=== PATIENT | male | born 1950 | race Caucasian/White ===

== ENCOUNTER 2024-01-17 10:21 | Observation (INO) ==
--- NOTE | 2023-12-10 22:53 | PAT Medication Instructions ---
Medication Instructions Date of Service December 10, 2023 Home Medications acetaminophen 500 mg tablet 1,000 mg PO BID PRN Pain amlodipine 10 mg tablet 10 mg PO HS atorvastatin 40 mg tablet 40 mg PO QAM budesonide 90 mcg/actuation breath activated powder inhaler (Pulmicort Flexhaler) 1 inh inhalation BID calcium carbonate 600 mg-vitamin D3 5 mcg (200 unit) tablet 1 tab PO BID epinephrine 0.3 mg/0.3 mL injection, auto-injector (EpiPen) 0.3 mg IM Q4H PRN Bee Sting hydrochlorothiazide 12.5 mg tablet 12.5 mg PO QAM losartan 100 mg tablet 100 mg PO QAM metoprolol succinate 25 mg tablet,extended release 24 hr 25 mg PO HS omeprazole 20 mg tablet,delayed release 20 mg PO QAM prednisone 5 mg tablet 5 mg PO QAM psyllium husk 3.4 gram/5.4 gram oral powder (Metamucil) 1 tbsp PO BID sildenafil 25 mg tablet (Viagra) 25 mg PO DAILY PRN Sexual Activity tamsulosin 0.4 mg capsule 0.4 mg PO HS vitamin B12 500 mcg-folic acid 400 mcg tablet 1 tab PO QAM Continue as directed epinephrine 0.3 mg/0.3 mL injection, auto-injector (EpiPen) 0.3 mg IM Q4H PRN Bee Sting (if needed) DO NOT take the morning of surgery calcium carbonate 600 mg-vitamin D3 5 mcg (200 unit) tablet 1 tab PO BID hydrochlorothiazide 12.5 mg tablet 12.5 mg PO QAM losartan 100 mg tablet 100 mg PO QAM psyllium husk 3.4 gram/5.4 gram oral powder (Metamucil) 1 tbsp PO BID sildenafil 25 mg tablet (Viagra) 25 mg PO DAILY PRN Sexual Activity vitamin B12 500 mcg-folic acid 400 mcg tablet 1 tab PO QAM Take morning of surgery With a small sip of water, OTHERWISE NOTHING TO EAT OR DRINK AFTER MIDNIGHT: acetaminophen 500 mg tablet 1,000 mg PO BID PRN Pain (if needed) atorvastatin 40 mg tablet 40 mg PO QAM budesonide 90 mcg/actuation breath activated powder inhaler (Pulmicort Flexhaler) 1 inh inhalation BID omeprazole 20 mg tablet,delayed release 20 mg PO QAM prednisone 5 mg tablet 5 mg PO QAM Take evening before surgery acetaminophen 500 mg tablet 1,000 mg PO BID PRN Pain (if needed) amlodipine 10 mg tablet 10 mg PO HS budesonide 90 mcg/actuation breath activated powder inhaler (Pulmicort Flexhaler) 1 inh inhalation BID calcium carbonate 600 mg-vitamin D3 5 mcg (200 unit) tablet 1 tab PO BID metoprolol succinate 25 mg tablet,extended release 24 hr 25 mg PO HS psyllium husk 3.4 gram/5.4 gram oral powder (Metamucil) 1 tbsp PO BID tamsulosin 0.4 mg capsule 0.4 mg PO HS Other Notes If you have any questions please call us at [phone] or [phone] or [phone] or [phone]
--- NOTE | 2023-12-20 09:19 | Anesthesiology Consultation ---
Date of Service December 20, 2023 Assessment & Plan (1) Encounter for pre-operative examination: - Infectious disease screening: Per assessment on 12/20/23: No known recent infectious disease contacts or current infectious disease symptoms. - Outpatient joint assessment: Pt currently scheduled for inpatient pathway. If surgeon requests review for outpatient joint pathway, patient is an acceptable candidate for outpatient joint program from anesthesia standpoint pending surgeon's office assessment that patient is motivated, has good support and completes [facility] preop requirements. 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 No recent flares/issues. - Patient acceptable risk for surgery pending surgeon-ordered PCP preop evaluation (RAVEN Sanders, appt 01/05). Chart Review Chart Review: Patient seen in Pre Admission Testing Teaching & Discussion Pre-Anesthesia Teaching/Discussion Notes: Instructed NPO after midnight before surgery,except medications with 15 cc of water. Medication instructions provided according to the PAT guidelines. History Surgery Operation Date: 01/17/24 10:45 Proposed Procedures p Right Shoulder Reversed Total Shoulder Arthroplasty, Biceps Tenodesis - Casper Pickard MD Height/Weight Height: 5 ft 1.5 in Weight: 67 kg Allergies Allergy/AdvReac Type Severity Reaction Status Date / Time bee venom protein (honey bee) Allergy Severe Anaphylaxis Verified 12/06/23 14:43 Penicillins Allergy Mild Rash Verified 12/19/23 12:21 Medications Home Medications Medication Instructions Recorded Confirmed Last Taken acetaminophen 500 mg tablet 1,000 mg PO BID PRN Pain 12/06/23 12/06/23 Unknown amlodipine 10 mg tablet 10 mg PO HS 12/06/23 12/06/23 Unknown atorvastatin 40 mg tablet 40 mg PO QAM 12/06/23 12/06/23 Unknown budesonide 90 mcg/actuation breath 1 inh inhalation BID 12/06/23 12/06/23 Unknown activated powder inhaler (Pulmicort Flexhaler) calcium carbonate 600 mg-vitamin 1 tab PO BID 12/06/23 12/06/23 Unknown D3 5 mcg (200 unit) tablet epinephrine 0.3 mg/0.3 mL 0.3 mg IM Q4H PRN Bee Sting 12/06/23 12/06/23 Unknown injection, auto-injector (EpiPen) hydrochlorothiazide 12.5 mg tablet 12.5 mg PO QAM 12/06/23 12/06/23 Unknown losartan 100 mg tablet 100 mg PO QAM 12/06/23 12/06/23 Unknown metoprolol succinate 25 mg 25 mg PO HS 12/06/23 12/06/23 Unknown tablet,extended release 24 hr omeprazole 20 mg tablet,delayed 20 mg PO QAM 12/06/23 12/06/23 Unknown release prednisone 5 mg tablet 5 mg PO QAM 12/06/23 12/06/23 Unknown psyllium husk 3.4 gram/5.4 gram 1 tbsp PO BID 12/06/23 12/06/23 Unknown oral powder (Metamucil) sildenafil 25 mg tablet (Viagra) 25 mg PO DAILY PRN Sexual Activity 12/06/23 12/06/23 Unknown tamsulosin 0.4 mg capsule 0.4 mg PO HS 12/06/23 12/06/23 Unknown vitamin B12 500 mcg-folic acid 400 1 tab PO QAM 12/06/23 12/06/23 Unknown mcg tablet Past Medical History Medical History (Updated 12/20/23 @ 09:46 by Leticia Hardin) Acid reflux Arthritis 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 No recent flares/issues. 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 No recent flares/issues. Osteoporosis Per records Reactive airway disease Per records Exercise / Class Metabolic Activity II 4-5 Yardwork/Stairs/Walk up hill (one FS: No CP, no SOB) Past Surgical History Surgical History Hx of blepharoplasty 11/27/23 bilateral Hx of colonoscopy Hx of esophagogastroduodenoscopy Hx of hernia repair "left lower abdomen" Hx of total knee replacement Right TKA (03/03/16): LMA#5 at [facility] (done under [place] due to hx of chronic guillian barre syndrome per anesthesia records) Past Anesthesia History No Hx of Anesthesia Complications and No Family Hx of Anesthesia Complications History of PONV No Hx of PONV and No Hx of Motion Sickness Social History Smoking Status: Never smoker Do You Dip or Chew Tobacco: No Hx Alcohol Use: No Hx Substance Use: No substance use type: does not use Review of Systems Patient denies chest pain, shortness of breath, dyspnea on exertion, fever, chills, cough, wheezing, palpitations. Physical Exam Vital Signs BP 145/75 P 71 TEMP 97.9 SP02 95%RA RESP 18 Physical Full cervical extension range of motion. Full TMJ range of motion. TMD > 3.5 finger breaths Mallampati Score III Dentition: intact, + implants/crowns (sides/molars) Lungs: clear throughout to auscultation Cardiac: regular rate and rhythm, no murmurs noted Spine: normal Carotid arteries: negative bruit Extremities: no LE edema Lab Results Anesthesia Preop Results Results Anesthesia Widget: WBC 5.84 K/ul (4.8-10.8) 12/20/23 Hgb 13.3 g/dl (14.0-18.0) L 12/20/23 Hct 39.2 % (42.0-52.0) L 12/20/23 Plt 222 K/uL (130-400) 12/20/23 Na 141 mmol/L (136-145) 12/20/23 K 3.5 mmol/L (3.5-5.1) 12/20/23 Cl 105 mmol/L (98-107) 12/20/23 CO2 28 mmol/L (21-32) 12/20/23 BUN 16 mg/dl (6-23) 12/20/23 Creat 0.97 mg/dl (0.6-1.4) 12/20/23 Glucose Level 101 mg/dl (70-99(Fasting)) H 12/20/23 PT 10.6 Seconds (9.0-12.0) 12/20/23 PTT 26 Seconds (21-31) 12/20/23 INR 1.0 (0.9-1.1) 12/20/23 Urine Color Yellow 12/20/23 Urine Appearance Clear (Clear) 12/20/23 Urine pH 7.5 (4.5-7.5) 12/20/23 Urine Specific [place] 1.015 (1.000-1.030) 12/20/23 Urine Protein Negative (Negative) 12/20/23 Urine Glucose (UA) Negative (Negative) 12/20/23 Urine Ketones Negative (Negative) 12/20/23 Urine Blood Negative (Negative) 12/20/23 Urine Nitrite Negative (Negative) 12/20/23 Urine Bilirubin Negative (Negative) 12/20/23 Urine Urobilinogen Negative (Negative) 12/20/23 Urine Leukocyte Esterase Negative (Negative) 12/20/23 Blood Type O Negative 12/20/23 Antibody Screen NEGATIVE 12/20/23 Testing Electrocardiogram Date: 12/20/23 NSR at 65bpm. RBBB. Chest X-Ray Date: 12/20/23 FINDINGS: PA and lateral chest radiographs are obtained. No prior studies are available for comparison at the time of dictation. The cardiomediastinal silhouette is unremarkable noting atherosclerotic calcification of the thoracic aorta. There is mild bibasilar scarring/atelectasis. The lungs and pleural spaces are otherwise clear. There is no pneumothorax. The skeletal structures are osteopenic. The bony thorax appears intact. Arthritic change is seen in the right shoulder and the thoracic spine. IMPRESSION: No active disease in the chest. Stress Test Date: 06/20/19 Type: exercise Exercise echo normal without evidence of inducible ischemia. 7.7 METS. Rest Echo: EF 70%. Mildly increased cLV wall thickness. Grade I DD. No significant valvular disease.
--- NOTE | 2024-01-15 19:02 | History & Physical Report ---
Date of Service January 15, 2024 Assessment & Plan (1) Rotator cuff tear arthropathy of right shoulder: Plan: Severe right shoulder end-stage osteoarthritis with bone loss and rotator cuff tear and biceps tendinopathy. Plan is reverse total shoulder arthroplasty bi ceps tenodesis. (2) Osteoarthritis of right glenohumeral joint: (3) Biceps tendinopathy of right upper extremity: History of Present Illness Chief Complaint: Chronic right shoulder pain Primary Care Provider: Harsh Schmidt MD 73-year-old male with chronic right shoulder pain and progressive severe arthritis of the glenohumeral joint with rotator cuff tear. Patient denies headaches, sweats, fevers, chills, double vision, blurred vision, cough, sore throat, dysphagia, chest pain, n/v/d/c, numbness, fatigue, urinary symptoms, mood disorders. ROS positive for shortness of breath related to COPD and physical activity some extremity weakness ,arthritis including spine, acid reflux heartburn. Allergies Allergy/AdvReac Type Severity Reaction Status Date / Time bee venom protein (honey bee) Allergy Severe Anaphylaxis Verified 12/06/23 14:43 Penicillins Allergy Mild Rash Verified 12/19/23 12:21 Home Medications Medication Instructions Recorded Confirmed Type acetaminophen 500 mg tablet 1,000 mg PO BID PRN Pain 12/06/23 12/06/23 History amlodipine 10 mg tablet 10 mg PO HS 12/06/23 12/06/23 History atorvastatin 40 mg tablet 40 mg PO QAM 12/06/23 12/06/23 History budesonide 90 mcg/actuation breath 1 inh inhalation BID 12/06/23 12/06/23 History activated powder inhaler (Pulmicort Flexhaler) calcium carbonate 600 mg-vitamin 1 tab PO BID 12/06/23 12/06/23 History D3 5 mcg (200 unit) tablet epinephrine 0.3 mg/0.3 mL 0.3 mg IM Q4H PRN Bee Sting 12/06/23 12/06/23 History injection, auto-injector (EpiPen) hydrochlorothiazide 12.5 mg tablet 12.5 mg PO QAM 12/06/23 12/06/23 History losartan 100 mg tablet 100 mg PO QAM 12/06/23 12/06/23 History metoprolol succinate 25 mg 25 mg PO HS 12/06/23 12/06/23 History tablet,extended release 24 hr omeprazole 20 mg tablet,delayed 20 mg PO QAM 12/06/23 12/06/23 History release prednisone 5 mg tablet 5 mg PO QAM 12/06/23 12/06/23 History psyllium husk 3.4 gram/5.4 gram 1 tbsp PO BID 12/06/23 12/06/23 History oral powder (Metamucil) sildenafil 25 mg tablet (Viagra) 25 mg PO DAILY PRN Sexual Activity 12/06/23 12/06/23 History tamsulosin 0.4 mg capsule 0.4 mg PO HS 12/06/23 12/06/23 History vitamin B12 500 mcg-folic acid 400 1 tab PO QAM 12/06/23 12/06/23 History mcg tablet Past Med/Surg History Problem List (Updated 01/15/24 @ 19:00 by Casper Pickard MD) 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 No recent flares/issues. 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 No recent flares/issues. Surgical History Hx of hernia repair "left lower abdomen" Hx of esophagogastroduodenoscopy Hx of total knee replacement Right TKA (03/03/16): LMA#5 at [facility] (done [place] due to hx of chronic guillian barre syndrome per anesthesia records) Hx of blepharoplasty 11/27/23 bilateral Hx of colonoscopy Social History Smoking Status: Never smoker Second Hand Exposure: No; Do You Dip or Chew Tobacco: No; Tobacco Cessation Education Requested by Patient: No Hx Alcohol Use: No Hx Substance Use: No Preferred Language: Ghanaian Communication Ability: Effective Edge Brusher Required: No Beliefs That Will Affect Care: None Current Living Situation: Spouse Other Information That Helps Us Care for You: No Feels Safe at Home: Yes Safety Concerns: Feels Safe At This Time Assistive Devices: Glasses and Other Assistive Devices Comment: Dental implant Review of Systems All systems reviewed & are unremarkable except as noted in HPI & below Physical Exam Constitutional: WD/WN, vitals as above Respiratory: normal respiratory effort; no respiratory distress Cardiovascular: Rate/Rhythm: regular rate and regular rhythm Musculoskeletal: Right shoulder with forward flexion 140 degrees with external rotation 45 degrees and painful range of motion with glenohumeral crepitation positive Charles and Neer impingement signs positive speeds test anterior shoulder tenderness. 4+/ 5 external and internal rotation strength with 5-/5 abduction strength. Distal circulation sensorimotor exam intact. Skin: no rashes, warm and dry Neurologic: normal touch/pain/proprioception Psychiatric: A+Ox3, euthymic affect Results & Data Diagnostic Findings MRI and CT scans obtained preop. CT scan for blueprint templating. MRI demonstrates rotator cuff tear with bone loss humeral and glenoid sides with B2 glenoid and flattening of the humeral head with grade 4 osteoarthritis glenohumeral joint. Also biceps tendinopathy.
[~2024-01-17 10:21] MED LIST: BUPIVACAINE 0.5 % 5 MG/1 ML PF 10ML VIAL ONE
[2024-01-17] MEDS ORDERED: fentaNYL citrate PF 100 MCG/2 ML VIAL ONE (11:03)
[2024-01-17] MEDS ORDERED: MIDAZOLAM HCL 1 MG/ML 2ML VIAL ONE (11:03)
[2024-01-17] MEDS: ACETAMINOPHEN 500 MG TAB PO SCH ×2 (11:27→22:31)
[2024-01-17] MEDS: CeleBREX 200 MG CAP PO SCH (11:27)
[2024-01-17] MEDS: dexAMETHasone**PF** 10 MG/ML VIAL IV SCH (11:27)
[2024-01-17] MEDS: LR 15ML/HR IV SCH (11:27)
[2024-01-17] MEDS: GABAPENTIN 300 MG CAP PO SCH (11:28)
[2024-01-17] MEDS: LR 60ML/HR IV SCH (11:28)
[2024-01-17] MEDS: METOCLOPRAMIDE HCL 10 MG TABLET PO SCH (11:28)
[2024-01-17] MEDS: FAMOTIDINE 20 MG TAB PO SCH (11:28)
[2024-01-17] MEDS: VANCOMYCIN HCL 1,000 MG/270 ML BAG IV SCH (11:47)
[2024-01-17] MEDS ORDERED: ONDANSETRON INJ 2 MG/ML 2 ML VIAL IV PRN ×2 (12:20→19:12)
[2024-01-17] MEDS ORDERED: ATROPINE SULFATE 0.1 MG/ML 10ML SYR IV PRN (12:20)
[2024-01-17] MEDS ORDERED: ePHEDrine sulfate 50 MG/ML AMP IV PRN (12:20)
[2024-01-17] MEDS ORDERED: fentaNYL citrate PF 100 MCG/2 ML VIAL IV PRN (12:20)
[2024-01-17] MEDS: TRANEXAMIC ACID / 0.7% NACL 1,000 MG/100 ML BAG IV ONE (12:36)
--- NOTE | 2024-01-17 13:16 | History & Physical Bridge Note ---
Date of Service January 17, 2024 History & Physical Bridge Note I have examined the patient, reviewed the History & Physical and in the interval since the performance of the History & Physical I have noted the following changes of clinical significance: no changes noted
[2024-01-17] MEDS ORDERED: PROPOFOL IV EMULSION 10 MG/ML 20 ML VIAL IV ONE (13:56)
[2024-01-17] MEDS ORDERED: PHENYLEPHRINE HCL 10 MG/ML VIAL ONE (13:56)
[2024-01-17] MEDS ORDERED: GLYCOPYRROLATE 0.2 MG/ML VIAL ONE ×2 (13:56→16:12)
[2024-01-17] MEDS ORDERED: ROCURONIUM BROMIDE 10 MG/ML 5 ML VIAL IV ONE (13:56)
[2024-01-17] MEDS ORDERED: ePHEDrine sulfate 50 MG/5 ML SYR ONE (13:56)
[2024-01-17] MEDS ORDERED: LIDOCAINE 2% 2 ML VIAL/AMP(20MG/ML) INFIL ONE (13:56)
[2024-01-17] MEDS ORDERED: ONDANSETRON INJ 2 MG/ML 2 ML VIAL ONE (13:56)
[2024-01-17] MEDS ORDERED: diphenhydrAMINE 50 MG/ML VIAL ONE (14:25)
[2024-01-17] MEDS ORDERED: NEOSTIGMINE METHYLSULFATE 1 MG/ML 10ML VIAL ONE (16:12)
[2024-01-17] MEDS: TRANEXAMIC ACID 1,000 MG **IV Intra-op IV SCH (16:17)
--- NOTE | 2024-01-17 16:53 | Operative Report ---
Post Operative Report Pre & Post Diagnosis Operation Date: 01/17/24 13:00 Pre-Op Diagnosis: Severe glenohumeral osteoarthritis Right Shoulder with bone loss, biceps tendinopathy, biceps tenosynovitis, rotator cuff tendinopathy Post-Op Diagnosis: Severe glenohumeral osteoarthritis Right Shoulder with bone loss, synovial calcifications, rotator cuff calcifications, rotator cuff tendinopathy, biceps tendinopathy with biceps tenosynovitis and multiple loose bodies biceps tendon sheath. I identified the patient and participated in the time-out.: Yes Procedure Operation Date: 01/17/24 13:00 Actual Procedures p Right Reversed Total Shoulder Arthroplasty with augmented full wedge glenoid baseplate, Biceps Tenodesis(Right), biceps tendon synovectomy removal multiple cartilaginous loose bodies.- Casper Pickard MD Surgeon Casper Pickard MD Critical Care Nurse Specialist Lenny BREWER Estimated Blood Loss 75 Findings Consistent with Post-Op Diagnosis Specimens Humeral head Drains 2 Hemovac Anesthesia Type General Regional Complications none Disposition Disposition: Recovery Room Indications 73-year-old male with chronic osteoarthritis right shoulder with progressive osteoarthritis including bone loss. Patient has rotator cuff tendinopathy and superior and posterior glenoid bone loss and flattening of the humeral head. Patient has biceps tenosynovitis with marked inflammatory response around the biceps. Patient has large subacromial effusion. Description of Procedure The patient was taken to the operating room and anesthetized under regional block and general anesthetic. The patient was positioned on the operating table in a 30 beachchair position with a towel roll under the medial border of the right scapula. The arm was draped free to be able to manipulate the shoulder as needed. The right upper extremity was prepped and draped in usual sterile fashion. Exam demonstrated external rotation with the arm to side only 10 degrees but with his arm abducted 90 degrees his external rotation was 80 degrees. There was marked cogwheel [id number] crepitation of the shoulder. Forward flexion was 165 degrees. An anterior deltopectoral approach was performed. A longitudinal incision was made in the deltopectoral interval. The skin was incised sharply. Subcutaneous flaps were elevated off the fascia. The cephalic vein was dissected out and retracted lateral with the deltoid. The clavipectoral fascia was divided at the lateral margin of the conjoined tendon and extended up to the CA ligament. The following findings were noted: There is a massive subacromial bursa effusion with scarred subacromial bursitis. This was resected revealing that he had a thin rotator cuff with tendinopathy and fraying of the bursal surface of the rotator cuff with calcium deposits. There was some partial tearing of the rotator cuff and intact subscapularis tendon. There was a large inflammatory response around the biceps tendon with the marked tenosynovitis that had multiple loose bodies with joint debris within the tendon sheath. The upper centimeter of the pectoralis was released for inferior exposure. Tenosynovectomy around the biceps was performed and all the loose debris was excised. The biceps tendon was tenodesed to the pectoralis tendon with #2 FiberWire. The proximal biceps was resected. The subscapularis tendon was taken down off the lesser tuberosity using a subperiosteal dissection. A #1 Vicryl traction suture was placed into the free end of the subscapularis tendon and capsule. The subscapular muscle fibers were split longitudinally at the level of the circumflex vessels. The circumflex vessels were identified and tied off with silk ties and divided laterally. A Kitner elevator was used to free up the inferior fibers of the subscapularis off of the capsule. The axillary nerve was identified with a tug test and protected with a blunt Zayda retractor between the nerve and the capsule. The subscapularis tendon was then taken down off of the lesser tuberosity subperiosteally and subperiosteal dissection was performed along the neck of the humerus as the arm is gradually actually rotated exposing the humeral head. There were moderate-sized inferior osteophytes and the humeral head had 100% eburnation with very hard bone with a flattened humeral head. Retractors were readjusted and the inferior osteophytes were all resected using an artist chisel. A Alvarez elevator was used to assist in releasing the capsule of the neck of the humerus. The capsule was divided with Huntley scissors down to the glenoid released off the anterior glenoid and the rotator interval was released to meet the capsular release and a 360 release of the subscapularis was accomplished. A Fukuda retractor was placed into the joint retracting the humeral head posterior. Glenoid findings demonstrated calcification of the anterior and inferior labrum and some osteophytes around the anterior and inferior glenoid. There was circumferential degenerative labrum tearing and the glenoid itself had 100% eburnation no articular cartilage a rounded appearance to the inferior 25% of the glenoid and bone loss superiorly and posteriorly with a B2 glenoid variant. There was a markedly widened biceps tendon intra-articularly and the degenerative tearing the labrum.. The labrum and biceps tendon was resected. The calcifications in the labrum were resected and the osteophytes were removed. An anterior-inferior and posterior inferior capsular release were performed with electrocautery and a Alvarez elevator on bone with the axillary nerve protected inferiorly by the retractor. Attention was then taken to the humeral preparation. The cutting guide was placed into the humeral head. It was positioned at 20 of retroversion. Oscillating saw was used to resect the humeral head giving the cut above the level of the posterior rotator cuff insertion site. The humerus was then prepared for the stem. I used the ascend flex stem from [employer]. The sizing broaches were used followed by trial broaches up to a size 4B long which had the appropriate fit and fill. The appropriate sized cut protector was placed. The humerus was then retracted posterior to the glenoid. The PSI guide was placed onto the glenoid. This was generated with blueprint preoperative templating. The central guidepin was placed. Assessment of the bone loss revealed that a full wedge would be the best baseplate type and this maximum apex of the wedge would be placed between posterior and superior in location. The central reamer was used followed by the 15 degree angled reamer followed by the trial baseplate which was noted to be satisfactory and the location of the wedge marked and then the boss reamer was used. The The depth gauge was used to measure for the central screw. Bone was very sclerotic so we did use a tap. Central screw was measured at 30 mm. The [employer] perform augmented full wedge 15 degree glenoid component 29 mm diameter with a 6.5 x 30 mm centered screw was then screwed in position placing the augment in the appropriate position. The compression screw was first placed on the wedge side of the implant with excellent fixation. This was a 5 x 38 mm locking screw. Then subsequent screws were placed inferior anterior and posterior. All had excellent fixation and very hard bone. After irrigation the 39 mm standard glenoid sphere was impacted onto the baseplate and the security screw was tightened. Attention was taken back to the humerus. The cut protector was removed and the +0 high offset humeral tray trial was assembled to the trial stem rotated appropriately to get bony coverage and then screwed in position. A trial reduction was performed. A +6 mm x 39 mm reversed trial insert demonstrated good stability and no shuck. The trials were removed. 3 drill holes are made into the harder bone in the bicipital groove area and 3 #5 FiberWire sutures were placed transosseously. The canal was irrigated. The final component was assembled. The final component was ascend Flex 4B long stem assembled to the +0 high offset humeral tray with a 39 mm +6 reversed polyethylene insert. This was then impacted into the humerus with a tight press-fit. It was reduced to the glenoid sphere. Stability was verified. There was no shuck noted. Subscapularis was repaired with the #5 FiberWire sutures using Tima-Nikhil suture technique. Lateral row soft tissue repair was performed with #2 FiberWire [id number] sutures. The pectoralis was repaired with #2 FiberWire [id number] sutures reinforcing the biceps tendon tenodesis. The arm was taken through a range of motion which demonstrated 160 degrees forward flexion 90 degrees abduction and external rotation to 50 degrees without any tension on repair. The implant was stable through the range of motion tested. The joint and wound was copiously irrigated with Xperience solution. 2 Hemovac drains were placed. The deltopectoral interval was closed with [id number] #1 Vicryl sutures. The subcutaneous tissues were closed with 2-0 Vicryl sutures. The skin was closed with surgical lily. Sterile dressings were applied and a shoulder immobilizer. Lenny BREWER, my physician office manager executive assistant assisted in the procedure to the entire procedure including patient positioning arm positioning prepping and draping soft tissue retraction instrument management suture management and performed the subcutaneous and skin closure and will participate in the postoperative care of the patient. I attest to the content of the Intraoperative Record and any orders documented therein. Any exceptions are noted below.
--- NOTE | 2024-01-17 17:25 | XRay Report ---
XR shoulder RT min 2V routine HISTORY: 73 years-old Male Post shoulder surgery right shoulder arthroplasty COMPARISON: CT 11/08/2023 TECHNIQUE: 2 views of the right shoulder FINDINGS: Reverse right shoulder arthroplasty with overlying skin lily, expected postoperative soft tissue s welling with deep tissue air and surgical drainage catheter. Moderate to severe AC joint osteoarthrit is. No acute fracture or dislocation. IMPRESSION: Right shoulder arthroplasty with expected postoperative changes. ACT 112: Negative or not required by law. The above report was generated using voice recognition software. It may contain grammatical, syntax o r spelling errors. Electronically signed by: Jose Earl M.D. 01/17/2024 5:23 PM
--- NOTE | 2024-01-17 18:09 | Anesthesiology Progress Note ---
Date of Service January 17, 2024 Anesthesia Post Procedure Vital Signs Vital Signs: Temp Pulse Resp BP Pulse Ox O2 Del Method O2 Flow Rate 01/17/24 18:00 86 16 114/62 95 Nasal Cannula 2 01/17/24 17:50 81 18 127/62 97 Nasal Cannula 2 01/17/24 17:40 75 13 125/59 L 97 Nasal Cannula 2 01/17/24 17:30 36.4 C L 81 14 132/61 96 Nasal Cannula 2 01/17/24 17:20 83 18 136/70 96 Oxymask 2 01/17/24 17:10 88 14 120/67 96 Oxymask 4 01/17/24 17:00 86 12 132/64 96 Oxymask 6 01/17/24 16:52 36.0 C L 84 18 128/59 L 96 Oxymask 8 01/17/24 11:03 36.7 C 70 20 177/85 H 94 Room Air Pain Intensity Right Shoulder: Pain Intensity: 3 Transfer of Care Handoff Completed per policy Notes Mental Status: alert / awake / arousable and participated in evaluation Patient Amnestic to Procedure: Yes Nausea / Vomiting: adequately controlled Pain: adequately controlled Airway Patency, RR, SpO2: stable & adequate BP & HR: stable & adequate Hydration State: stable & adequate Anesthetic Complications: no major complications apparent
[2024-01-17] MEDS ORDERED: ALUMINUM/MAGNESIUM SUSP 30 ML UDC PO PRN (19:12)
[2024-01-17] MEDS ORDERED: VANCOMYCIN CONSULT ACTIVE PRN (19:12)
[2024-01-17] MEDS ORDERED: diphenhydrAMINE Capsule 25 MG CAP PO PRN (19:12)
[2024-01-17] MEDS ORDERED: KETOROLAC TROMETHAMINE 15 MG/ML VIAL IV PRN (19:12)
[2024-01-17] MEDS ORDERED: bisacodyL 10 MG SUPP PR PRN (19:12)
[2024-01-17] MEDS ORDERED: HYDROmorphone INJ 0.5 MG/0.5 ML SYR IV PRN (19:12)
[2024-01-17] MEDS ORDERED: NALOXONE HCL 0.4 MG/1 ML VIAL/CARP IV PRN (19:12)
[2024-01-17] MEDS ORDERED: METOCLOPRAMIDE HCL INJ 5 MG/ML 2 ML VIAL IV PRN (19:12)
[2024-01-17] MEDS ORDERED: MAGNESIUM HYDROXIDE SUSP 30 ML UDC PO PRN (19:12)
[2024-01-17] MEDS ORDERED: oxyCODONE HCL IR 5 MG TAB (IMMEDIATE RELEASE) PO PRN (19:12)
[2024-01-17] MEDS: TRANEXAMIC ACID 1,000 MG x 1 **TOPICAL Use Intraop TOP SCH (19:34)
[2024-01-17] MEDS: SODIUM CHLORIDE 0.9% 1,000 ML IV SCH (19:52)
--- OUTSIDE RECORDS SUMMARY | 2024-01-17 21:03 | External Medical Summary | Summary of Care ---
Author Name Unknown Organization [facility] Address [address] [place] [address] Phone [phone] Care Team Providers Care Professor Of Social Work Name Role Phone Harsh Schmidt MD Primary Care Provider [phone] Encounter Details Date Type Department Care Team (Latest Contact Info) Description 01/11/2024 8:38 AM EDT - 01/11/2024 11:59 PM EDT Hospital Encounter Radiology, [address] [id number] Arrived Discharge Disposition: Home - Self Care Allergies Active Allergy Reactions Criticality Noted Date Comments Bee Venom Itching 01/04/2018 Penicillins 11/08/2001 Urticaria documented as of this encounter (statuses as of 01/12/2024) Medications Medication Sig Dispensed Refills Start Date End Date Status METAMUCIL SMOOTH TEXTURE 58.6 % PO POWD 1 scoop per day in 8oz water by mouth 1 unit 11 05/06/2008 Active CALCIUM 600/VITAMIN D 600-400 MG-UNIT PO TABSIndications:Idio pathic progressive polyneuropathy 1 TABLET TWICE DAILY WITH FOOD 60 Tab 3 06/23/2010 Active Additional Information Patient taking differently: (No route reported), Informant: Patient, Reported on 08/15/2023 Albuterol Sulfate (ALBUTEROL HFA) 108 (90 BASE) MCG/ACT inhalerIndications:C OPD exacerbation (HCC) Inhale 2 Puffs by mouth every 4 hours as needed for Cough, Shortness of Breath or Wheezing. 1 Inhaler 1 03/05/2019 Active acetaminophen (TYLENOL EXTRA STRENGTH) 500 MG Tablet Take 1 Tablet by mouth every 6 hours as needed for Pain. Active diphenhydrAMINE HCl 25 MG Oral Tablet (Benadryl Allergy) Take 1 Tablet by mouth at bedtime as needed for Sleep. Active predniSONE 5 MG Oral Tablet (Deltasone)Indicatio ns:History of Guillain-Kingwood syndrome TAKE ONE TABLET BY MOUTH EVERY DAY IN THE MORNING. 90 Tablet 3 02/20/2023 Active Cyanocobalamin 1000 MCG Oral Tablet (Cyanocobalamin) Take 1 Tablet by mouth in the morning. Active Sildenafil Citrate 20 MG Oral Tablet (Revatio) TAKE TWO TABLETS BY MOUTH DAILY 1 hour prior to planned intercourse 60 Tablet 5 09/22/2023 Active Pulmicort Flexhaler 90 MCG/ACT Inhalation Aerosol Powder Breath Activated (Budesonide)Indicati ons:COPD, group B, by GOLD 2017 classification (HCC),Reactive airway disease without complication, unspecified asthma severity, unspecified whether persistent inhale 1 puff by mouth in the morning and 1 puff before bedtime 1 Each 5 09/26/2023 Active EpiPen 2-Raffy 0.3 MG/0.3ML Injection Solution Auto-injectorIndicat ions:Yellow jacket sting allergy For a severe reaction: Place orange end against the outer thigh, press firmly, hold in place for 10 seconds and go to the Emergency room. 2 Each 3 10/10/2023 Active Tamsulosin HCl 0.4 MG Oral Capsule (Flomax)Indications: BPH without obstruction/lower urinary tract symptoms Take 1 Capsule by mouth every night at bedtime. 90 Capsule 10/10/2023 Active Atorvastatin Calcium 40 MG Oral Tablet (Lipitor)Indications :Coronary artery disease involving lovelock coronary artery of lovelock heart without angina pectoris,Dyslipidemi a, goal LDL below 100 Take 1 Tablet by mouth in the morning. In the morning.. 90 Tablet 10/10/2023 Active amLODIPine Besylate 10 MG Oral Tablet (Norvasc)Indications :HTN, goal below 140/90 Take 1 Tablet by mouth in the morning. In the morning.. 90 Tablet 10/10/2023 Active hydroCHLOROthiazide 12.5 MG Oral CapsuleIndications:H TN, goal below 140/90 Take 1 Capsule by mouth in the morning. Every morning.. 90 Capsule 2 10/10/2023 Active Losartan Potassium 100 MG Oral Tablet (Cozaar)Indications: HTN, goal below 140/90 TAKE ONE TABLET BY MOUTH ONCE DAILY 90 Tablet 3 10/10/2023 Active Metoprolol Succinate ER 25 MG Oral Tablet Extended Release 24 Hour (toPROL XL)Indications:Coron carlos artery disease involving lovelock coronary artery of lovelock heart without angina pectoris Take 1 Tablet by mouth in the morning. In the morning.. 90 Tablet 3 10/10/2023 Active Omeprazole 20 MG Oral Capsule Delayed Release (PriLOSEC) TAKE ONE CAPSULE BY MOUTH ONCE DAILY 90 Capsule 3 11/14/2023 Active Latanoprost 0.005 % Ophthalmic Solution (Xalatan)Indications :Primary open angle glaucoma of both eyes, mild stage INSTILL ONE DROP INTO EACH EYE IN THE EVENING 2.5 mL 01/01/2024 Active Alendronate Sodium 70 MG Oral Tablet (Fosamax)Indications :Osteoporosis, unspecified osteoporosis type, unspecified pathological fracture presence Take 1 Tablet by mouth once a week. with 8 oz. water 30 minutes before first meal of the day. Remain upright for 30 min after taking tablet. 5 Tablet 11 01/11/2024 Active documented as of this encounter (statuses as of 01/12/2024) Active Problems Problem Noted Date Diagnosed Date COPD, group B, by GOLD 2017 classification 11/01 Overview: Per COPD GOLD Classification Other specified glaucoma 03/05/2019 Yellow jacket sting allergy 01/08/2018 History of colon polyps 08/15/2017 Overview: TUBULAR ADENOMA 2018 COLONOSCOPY Gastroesophageal reflux disease without esophagi tis 08/15/2017 Overview: NO BENEFIT WITH USING H2 SOFIE Reactive airway disease 01/13/2014 Overview: SPIROMETRY 09/2013 FEV1/FVC 0.92, FEV1 0.70 PRE BRONCHODILATOR, 64% IMPROVEMENT IN TPT35-23, 12 % IMPROVEMENT IN FEV1 WITH BRONCHODILATOR SPIROMETRY 02/2014 FEV1/FVC 0.77, FEV1 0.86 POST BRONCHODILATOR; 11% IMPROVEMENT IN FEF 25-75 WITH BRONCHODILATOR HTN, goal below 140/90 09/06/2011 custodial (current) use of systemic steroids BPH without obstruction/lower urinary tract symp toms 03/07/2011 Osteoporosis 07/30/2010 CARPAL TUNNEL SYNDROME - jeanette ateral, R>L, as per EMG on 05/25/2010, 05/26/2010 CERVICAL SPINAL STENOSIS - as per MRI on 011 05/26/2010 SPINAL STENOSIS-THORACIC - as per MRI on 011 05/26/2010 Dyslipidemia, goal LDL below 100 05/24/2010 ADVANCE DIRECTIVE INFORMATION 12/02/2004 Overview: Yes, Patient instructed to provide copy of advance directive for provider to review and to be scanned into Electronic Medical Record History of Guillain-Kingwood syndrome documented as of this encounter (statuses as of 01/12/2024) Resolved Problems Problem Noted Date Diagnosed Date Resolved Date COPD, moderate 09/29/2020 11/04/2021 Overview: Per COPD GOLD Classification COPD, group B, by GOLD 2017 classification 07/01/2019 09/09/2019 Overview: Per COPD GOLD Classification Chest pain 06/19/2019 06/20/2019 MARROQUIN (dyspnea on exertion) 06/19/2019 Cervicalgia 07/18/2018 10/08/2018 COPD, moderate 06/07/2018 07/04/2019 Overview: Per COPD GOLD Classification HTN, goal below 130/80 03/03/201601/05 CIDP (chronic inflammatory d emyelinating polyneuropathy) 06/22/2010 01/06/2024 Malaise and fatigue 06/16/2010 03/07/20 11 Proximal Muscle Weakness 06/16/2010 Hereditary and idiopathic pe ripheral neuropathy 05/25/2010 01/06/2024 Dyslipidemia, goal to be determined 04/09/2009 05/24/2010 Overview: Per Lipid Taxonomy. HYPERCHOLESTEROLEMIA 009 Overview: Per Lipid Taxonomy. ANXIETY DISORDER 03/07/2011 Other allergic rhinitis 02/22 Overview: ICD-10 update of inactive term documented as of this encounter (statuses as of 01/12/2024) Immunizations Name Administration Dates Next Due COVID-19 mRNA, LNP-s, No Pre serve, 2-Dose Series (Pfizer) 05/19/2021,07/13/2020,06/17/2020 H1N1 2009 Influenza, IM 04/10/2009 Pneumococcal Conjugate Vacc, 13 Valent (Prevnar) 08/04/2015 Pneumococcal Polysaccharide PPV23 (Pneumovax) 04/09/2019,02/10/2014 Seasonal Influenza, PF, 6 M & above, IM , (FluLaval or Fluzone) 01/28/2020,01/24/2019,02/20/2018,03/23 Seasonal Influenza, Quadriva lent Hd (Fluzone Hd) 02/17/2023,02/09/2022,02/02/2021 Seasonal Influenza, Quadriva lent, No Preserve, IM 02/18/2016,02/25/2015 Seasonal Influenza, Trivalen t, (IIV3), with Preserv, (Fluzone) 12/24/2013,02/25/2013,03/13/2012,03/07,03/12/2008,03/23/2007,04/11/2006 TD - Tetanus/Diptheria (ADULT) 09/02/2001 TDAP (age 10 and older)(Boostrix) 10/26/2021 TDAP, Age 7 and older, IM (Adacel) 03/07/2011 Zoster Vaccine Recombinant (Shingrix) 02/14/2022 ,10/26/2021 documented as of this encounter Social History Tobacco Use Types Packs/Day Years Used Date Smoking Tobacco: Former Cigarettes 1 15 0 07/19/1960 - 07/20/1975 Smokeless Tobacco: Never Alcohol Use Standard Drinks/Week Comments Yes 0 (1 standard drink = 0.6 oz pur e alcohol) wine in evening PHQ-2 Answer Date Recorded PHQ Adult Total Score 0 08/15/2023 Hunger Vital Sign Answer Date Recorded Within the past 12 months, y ou worried that your food would run out before you got the money to buy more. Never true 09/26/19 24 Within the past 12 months, t he food you bought just didn't last and you didn't have money to get more. Never true 09/26/2023 Childcare Answer Date Recorded Do you feel overwhelmed with taking care of a child, family member or friend? No 09/26/2023 Does your family need help f inding childcare? (Household - for ages 0-17 years) Not on file 09/26/2023 Clothing Answer Date Recorded Have you been unable to get clothing when it was really needed? No 09/26/2023 Is your family able to get c lothes or diapers when needed? (Household - for ages 0-17 years) Not on file 09/26/2023 Personal Safety Answer Date Recorded Do you feel unsafe or have concerns for your saf ety? No 09/26/2023 Do you have concerns for you r family's safety? (Household - for ages 0-17 years) Not on file 09/26/2023 Utilities Answer Date Recorded Do you have trouble paying y our heating, water, or electric bill? No 09/26/2023 Is your family able to pay t he heat, water, or electric bill? (Household - for ages 0-17 years) Not on file 09/26/2023 Does your family have access to good internet? (Household - for ages 0-17 years) Not on file 09/26/2023 Employment Status Answer Date Recorded Are you unemployed or without regular income? No 09/26/2023 Does the household have a re gular source of income? (Household - for ages 0-17 years) Not on file 09/26/2023 Social Connections Answer Date Recorded How often do you feel lonely or isolated from th ose around you? Never 09/26/2023 Financial Resource Strain Answer Date R ecorded Do you have any trouble payi ng for your medications, or do you think you might in the future? No 09/26/2023 Does your family have troubl e paying for medicine? (Household - for ages 0-17 years) Not on file 09/26/2023 Transportation Needs Answer Date Record ed READ ONLY Do you have troubl e getting a ride to medical visits or work? Never True 09/26/2023 Does your family have a hard time getting a ride to doctors visits? (Household - for ages 0-17 years) Not on file 09/26/2023 Has lack of transportation k ept you from medical appointments, meetings, work, or from getting things needed for daily living? Check all that apply. (Adult - for ages 18 years and over) Not on file 09/26/2023 Do you (or your family) have trouble finding or paying for a ride (transportation)? (Household - for ages 0-17 years) Not on file 09/26/2023 Housing Stability Answer Date Recorded Do you currently live in a s helter or have no steady place to sleep at night? No 09/26/2023 READ ONLY Do you think you a re at risk of becoming homeless? No 09/26/2023 Does your family worry about paying for your home or becoming homeless? (Household - for ages 0-17 years) Not on file 0 09/26/2023 Are you homeless or worried that you might be in the future? (Adult - for ages 18 years and over) Not on file Are you (or your family) roddy eless or worried that you might be in the future? (Household - for ages 0-17 years) Not on file Food Insecurity Answer Date Recorded Do you need food for this week? No 09/26/2023 Are you able to get enough f ood for your family? (Household - for ages 0-17 years) Not on file 09/26/2023 Does your family need food t his week? (Household - for ages 0-17 years) Not on file 09/26/2023 Do you always have enough fo od for your family? (Household - for ages 0-17 years) Not on file 09/26/2023 Sex and Gender Information Value Date Recorded Sex Assigned at Male 10/03/2021 9:04 PM EDT Gender Identity Male 10/03/2021 9:04 PM EDT Sexual Orientation Straight 10/03/2021 9: 04 PM EDT Job Start Date Occupation Industry Not on file Not on file Not on file documented as of this encounter Functional Status Functional Status Response Date of Assess ment Are you deaf or do you have serious difficulty h earing? No 06/19/2019 Are you blind or do you have serious difficulty seeing, even when wearing glasses? No 06/19/2019 Do you have serious difficul ty walking or climbing stairs? (5 years old or older) No 06/19/2019 Do you have difficulty dress ing or bathing? (5 years old or older) No 06/19/2019 Because of a physical, menta l, or emotional condition, do you have difficulty doing errands alone such as visiting a doctor s office or shopping? (15 years old or older) No 06/19/19 20 Cognitive Status Response Date of Assessm ent Because of a physical, menta l, or emotional condition, do you have serious difficulty concentrating, remembering, or making decisions? (5 years old or older) No 06/19/2019 documented as of this encounter Plan of Treatment Upcoming Encounters Date Type Department Care Team (Late st Contact Info) Description 01/30/2024 1:30 PM EDT Office Visit [facility] [address] [place] [address] Paddy Charlton DO [address] [place] [address] 04/30/2024 3:00 PM EST Office Visit Ophthalmology, [place] [address] [id number] Dave Garza MD [address] [address] Nurse Marilyn Ophthalmology [address] [address] 06/14/2024 11:00 AM EST Office Visit [facility], [place] [address] [phone] Harsh Schmidt MD [address] [address] 08/19/2024 8:00 AM EDT Nurse Only Ancillary 1st Floor, [place] [address] [address] Nurse Marilyn Annual Wellness, RN [address] [id number] Scheduled Procedures Name Priority Associated Diagnoses Date/Ti me COLONOSCOPY FLEXIBLE PROXIMA L DIAGNOSTIC Recall Ischemic colitis (HCC) History of colonic polyps Health Maintenance Due Date Last Done Comments Cologuard 1994 Sigmoidoscopy 1994 Fecal Occult Blood Test 03/18/2014 03/18/20 13, 05/06/2008, 04/03/2007, Additional history exists *BISPHONATE OR OTHER ACCEPTABLE MEDICATION NEEDED FOR OSTEOPOROSIS (REFER TO SMARTSET #1146) 09/13/2019 COVID-19 Vaccine ( season) 2023 05/19/2021, 07/13/2020, 06/17/2020 Influenza Vaccine (FLU shot) (#1) 2023 02/17/2023, 02/09/2022, 02/02/2021, Additional history exists GFR 03/23/2024 03/23/2023, 09/22, 01/04/2021, Additional history exists Colonoscopy 07/27/2024 07/27/2021, 0408/2021, 01/04/2021, Additional history exists Colorectal Cancer Screening 07/27/2024 Adult Wellness Visit 08/14/2024 08/15/2023 Depression Screening 08/14/2024 08/15/2023 HOME BP CUFF VALIDATION YEARLY 08/14/2024 08/15/2023, 07/09/2019, 10/27/2016 O2 ASSESSMENT COMPLETED IN PAST YEAR FOR COPD 01/05/2025 01/06/2024 DXA Scan 01/10/2026 01/11/2024, 08/0 11/2021, 11/19/2018, Additional history exists Albumin/Creatinine Ratio 03/23/2026 03/23/2023, 02/0 10/2019 Lipid Panel 03/23/2028 03/23/2023, 09/22, 09/25/2020, Additional history exists DTap/Tdap Vaccines (3 - Td or Tdap) 10/27/2031 10/26/2021, 03/07/2011, 09/02/2001 Pneumococcal Vaccine: 65+ Years Completed 04/09/2019, 08/04/2015, 02/10/2014 AAA Screening Completed 01/06/2021, 0709/2017, 02/18/2016, Additional history exists Zoster Vaccines Completed 02/14/2022, 10/26/2021 VITAMIN D LEVEL ONCE IN A LIFETIME-USE SMARTSET# 87310 Completed 10/03/2022, 09/10/2012, 08/07/2010, Additional history exists Alpha-1 Antitrypsin Discontinued HPV (Gardasil) Vaccine Aged Out No lo nger eligible based on patient's age to complete this topic Hepatitis B Vaccine Aged Out No longe r eligible based on patient's age to complete this topic MENINGOCOCCAL (MENACTRA/MENVEO) Aged Out No longer eligible based on patient's age to complete this topic documented as of this encounter Medical Devices Implanted Type Area Lead Tank Mechanic Device Identifier Shelf Expiration Date Model / Serial / Lot Mesh Marlex Large [id number] - [id number] Implanted:Qty : 1 on 09/06/2016 by Hipolito Gonsalez DO at OR [facility] Left: Groin CR BARD : DAVOL 05/21/2021 [id number] / / [id number] Sureclip 16mm 235cm - [id number] Implanted:Qty : 1 on 01/04/2021 by Ailyn Langford MD at ENDOSCOPY [facility] [employer] TECH ENDOSCOPY [id number] 07/06/2022 [id number] / / [id number] documented as of this encounter Procedures Procedure Name Priority Date/Time Associated Diagnosis Comments DEXA SCAN/BONE MINERAL AXIAL Routine 01/11/2024 9:21 AM EDT Age related osteoporosis, unspecified pathological fracture presence documented in this encounter Results * DEXA SCAN/BONE MINERAL AXIAL (01/11/2024 9:21 AM EDT) Anatomical Region Laterality Modality Dexa, Vertebra, Spine, Hip, Pelvis Nuclear Medicine Impressions 01/11/2024 12:14 PM EDT S: Fracture risk is based on current National Osteoporosis Foundation (www.nof.org) Clinicians Guide and [place] Association of Clinical Endocrinology (AACE) Guidelines (www.aace.com) and the application of current WHO FRAX tool (https://www.tyrone.ac.uk/FRAX/) as well as the 2017 [place] [employer] Glucocorticoid Induced Osteoporosis (GIOP) Guidelines (rheumatology.org/Practice-Quality/Clinical-Support/Odtbiklp-Ehuecegr-Qwdqv lines) using Bone mineral density derived T-scores and clinical risk factors obtained from the patient questionnaire. 1. The fracture risk is HIGH (remains HIGH) 2. The quality of the examination is GOOD. 3. No previous study for comparison. DEXA machine was recently upgraded so comparison study can not be made SUGGESTIONS: Information concerning the evaluation and treatment of osteoporosis can be found at the National Osteoporosis Foundation website (www.nof.org) and [place] Association [employer] Endocrinology (AACE-www.aace.com). Osteoporosis prevention and treatment begins by modifying risk factors (such as smoking cessation and avoiding alcohol excess) and by participating in weight-bearing activities and exercise. Issues related to fall prevention and home safety should be addressed. Current NOF guidelines suggest 1200 to 1500 mg of calcium from diet and or supplemental sources. It is generally felt best to get calcium from one s diet. Calcium carbonate and calcium citrate are common calcium supplement choices in most local pharmacies. If the patient is taking a proton pump inhibitor, then calcium citrate should be the preferred supplement, if that is necessary. NOF guidelines for vitamin D are 800 to 1000 units of vitamin D3 daily. However, this may best be guided by measurement of 25-OH vitamin-D level, aiming for a level between 30 to 50 units (ng/ml). Additional information can be found at the FRAX website (https://www.tyrone.ac.uk/FRAX/), and the [place] [employer] website (https://www.rheumatology.org/Practice-Quality/Clinical-Support/Clinical-Pr actice-Guidelines). 1. The optimal duration of treatment for a patient with osteoporosis is unclear. There is evidence that ongoing treatment of a high risk patient for at least 5 years has clinical benefits to reduce fracture risk. The ongoing benefits and risks of treatment after 5 years are continually debated. It is suggested that the clinical circumstances and patient's desires be taken into consideration to determine ongoing treatment. Ongoing treatment for a patient who is at significant risk for future fracture remains reasonable. This would include patients with T-scores at the femoral neck that remain below -2.5 and patients who have suffered an osteoporotic vertebral or hip fracture. 2. A repeat study should be considered in 2 years FELTON JARAMILLO M.D. ISCD Certified Clinical Notched Blade Loader Department of Rheumatology [facility] Narrative 01/11/2024 12:14 PM EDT Radiology, [facility] DXA Performed: 01/11/24 DXA Resulted: 01/11/2024 Kevin Ledesma Reason for testing: chronic steroid therapy , Age-appropriate screening Osteoporosis treatment (per questionnaire): A. Previous treatment: Fosamax/Alendronate [id number] B. Current treatment: NONE Major risk factors: current glucocorticoid use Using a [employer] [facility] images of the left hip, left forearm were obtained using DXA.. The bone mineral density and T scores [standard, young, normal, male population] are as follows: RESULTS: Left forearm: 0.844 gms/cm2 T-score: +0.5 Left femoral neck: 0.702 gms/cm2 T-score: -1.7 Using the NOF/WHO FRAX calculator, the 10 year absolute risk for any major osteoporotic fracture is 11 % and the risk for hip fracture is 3.4 %. Harsh Schmidt MD RADIOLOGY ([facility]) documented in this encounter Visit Diagnoses Diagnosis Age related osteoporosis, unspecified pathological fracture presence documented in this encounter Advance Directives * Full Code (Latest Code Status on File) Date Activated Date Inactivated Comments 06/19/2019 5:16 PM 06/20/2019 9:14 PM This order r eflects the patients wishes and were consensually agreed upon. Question Answer Comments Discussion of Advance Directives occurred with: Patient * Full Code Date Activated Date Inactivated Comments 06/15/2010 4:25 PM 06/19/2010 8:13 PM This order r eflects the patients wishes and were consensually agreed upon. Question Answer Comments Discussion of Advance Directives occurred with: Patient Does the patient have a Living Will? No Does the patient have Health Care Power of Attor maribell? No * Full Code Date Activated Date Inactivated Comments 05/25/2010 5:07 PM 05/26/2010 8:09 PM This order ref lects the patients wishes and were consensually agreed upon. Question Answer Comments Discussion of Advance Directives occurred with: Patient Does the patient have a Living Will? Yes, not cu rrently available Does the patient have Health Care Power of Transportation Economics Teacher? No Care Teams Professor Of Social Work Relationship Specialty Start Date End Date Harsh Schmidt MD [address] [id number] PCP - General Family Medicine 03/24/21 documented as of this encounter
--- OUTSIDE RECORDS SUMMARY | 2024-01-17 21:03 | External Medical Summary | Summary of Care ---
Author Name Unknown Organization [facility] Address [address] [facility] [place] [address] Phone [phone] Care Team Providers Care Bone Tender Name Role Phone Harsh Schmidt MD Primary Care Provider [phone] Reason for Visit * Reason Onset Date Comments Test Results 01/11/202401/10 Encounter Details Date Type Department Care Team (Late st Contact Info) Description 01/11/2024 Telephone [facility] [address] [facility] [address] Harsh Schmidt MD [address] [place] [address] Test Results (01/10) Allergies Active Allergy Reactions Criticality Noted Date Comments Bee Venom Itching 01/04/2018 Penicillins 11/08/2001 Urticaria documented as of this encounter (statuses as of 01/11/2024) Medications Medication Sig Dispensed Refills Start Date [...] 108 (90 BASE) MCG/ACT inhalerIndications:C OPD exacerbation ([facility]) Inhale 2 Puffs by mouth every 4 [...] 5 MG Oral Tablet (Deltasone)Indicatio ns:History of Guillain-[place] syndrome TAKE ONE TABLET BY MOUTH EVERY [...] ons:COPD, group B, by GOLD 2017 classification ([facility]),Reactive airway disease without complication, unspecified asthma severity, [...] mouth every night at bedtime. 90 Capsule 3 10/10/2023 Active Atorvastatin Calcium 40 MG Oral Tablet (Lipitor)Indications :Coronary artery disease involving [place] coronary artery of [place] heart without angina pectoris,Dyslipidemi a, goal LDL below 100 Take 1 Tablet by mouth in the morning. In the morning.. 90 Tablet 3 10/10/2023 Active amLODIPine Besylate 10 MG Oral Tablet (Norvasc)Indications :HTN, goal below 140/90 Take 1 Tablet by mouth in the morning. In the morning.. 90 Tablet 3 10/10/2023 Active hydroCHLOROthiazide 12.5 MG Oral CapsuleIndications:H [...] Hour (toPROL XL)Indications:Coron carlos artery disease involving [place] coronary artery of [place] heart without angina pectoris Take 1 Tablet [...] as of this encounter (statuses as of 01/11/2024) Active Problems Problem Noted Date Diagnosed Date COPD, group B, by GOLD 2017 classification 11/01 Overview: Per COPD GOLD Classification Other specified glaucoma 03/05/2019 Yellow jacket sting allergy 01/08/2018 History of colon polyps 08/15/2017 Overview: TUBULAR ADENOMA 2017 COLONOSCOPY Gastroesophageal reflux disease without esophagi tis 08/15/2017 Overview: NO BENEFIT WITH USING H2 SOFIE Reactive airway disease 01/13/2014 Overview: SPIROMETRY 09/2013 FEV1/FVC 0.92, FEV1 0.70 PRE BRONCHODILATOR, 64% IMPROVEMENT IN MEK47-80, 12 % IMPROVEMENT IN FEV1 WITH BRONCHODILATOR SPIROMETRY 02/2014 FEV1/FVC 0.77, FEV1 0.86 POST BRONCHODILATOR; 11% IMPROVEMENT IN FEF 25-75 WITH BRONCHODILATOR HTN, goal below 140/90 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 (Household - for ages [...] No 06/19/2019 documented as of this encounter Miscellaneous Notes * Telephone Encounter - Isabella Strickland LPN - 01/11/2024 3:01 PM EDT Patient aware and verbalized understanding, will comply * Telephone Encounter - Joselin Hagan LPN - 01/11/2024 2:13 PM EDT Attempted to call patient, there was no answer, left voicemail. When patient returns call, ok for CORKY to relay message, please refer to below documentation. If needed, can transfer to dedicated nurse line. * Telephone Encounter - Harsh Schmidt MD - 01/11/2024 12:57 PM EDT Please advise pt that dexa scan shows osteoporosis, and I would recommend a restarting weekly medication called alendronate to help improve bone density. He was on it and stopped in 2019, and in 2021was normal. However, not osteoporosis again, so should restart. Just needs to remain upright for an hour afterwards (no laying down) to prevent reflux. Creatinine Results: Lab Results Component Value Date/Time CREATININE - [facility] 0.9 03/23/2023 08:18 AM CREATININE - [facility] 0.8 10/03/2022 07:50 AM CREATININE - [facility] 0.9 01/04/2021 11:24 AM CREATININE - [facility] 0.9 06/20/2019 06:46 AM CREATININE - [facility] 0.8 06/19/2019 12:41 PM CREATININE - [facility] 0.9 05/31/2019 07:54 AM CREATININE - [facility] 0.8 01/01/1996 05:35 PM CREATININE, RANDOM URINE - [facility] 139 03/23/2023 08:22 AM CREATININE, RANDOM URINE - [facility] 113 05/31/2019 08:03 AM Should also take daily cacium/vitamin D supplement purchased OTC. Please select pharmacy if agreeable. Thanks! Harsh Schmidt MD, DEVORA Family Physician Carrie Sanders documented in this encounter Plan of Treatment Upcoming Encounters Date Type Department Care Team (Late st Contact Info) Description 01/30/2024 1:30 PM EDT Office Visit [facility] [address] [place] [address] Paddy Charlton DO [address] [place] [address] 04/30/2024 3:00 PM EST Office Visit Ophthalmology, [place] [address] [address] Dave Garza MD [address] [address] Nurse [facility] [address] [address] 06/14/2024 11:00 AM EST [facility] [address] [address] Harsh Schmidt MD [address] [address] 08/19/2024 8:00 AM EDT Nurse Only Ancillary 1st Floor, [place] [address] [address] Marilyn Nurse Annual Wellness, RN [address] [address] Scheduled Procedures Name Priority Associated Diagnoses Date/Ti [...] 01/04/2021, Additional history exists Colonoscopy 07/27/2024 07/27/2021, 08/2021, 01/04/2021, Additional history exists Colorectal Cancer Screening 07/27/2024 Adult Wellness Visit 08/14/2024 08/15/2023 Depression Screening 08/14/2024 08/15/2023 HOME BP CUFF VALIDATION YEARLY 08/14/2024 08/15/2023, 07/09/2019, 10/27/2016 O2 ASSESSMENT COMPLETED IN PAST YEAR FOR COPD 01/05/2025 01/06/2024 DXA Scan 01/10/2026 01/11/2024, 080 11/2021, 11/19/2018, Additional history exists Albumin/Creatinine Ratio 03/23/2026 03/23/2023, 0210/2019 Lipid Panel 03/23/2028 03/23/2023, 09/22, 09/25/2020, Additional history exists DTap/Tdap Vaccines (3 - Td or Tdap) 10/27/2031 10/26/2021, 03/07/2011, 09/02/2001 Pneumococcal Vaccine: 65+ Years Completed 04/09/2019, 08/04/2015, 02/10/2014 AAA Screening Completed 01/06/2021, 09/2017, 02/18/2016, Additional history exists Zoster Vaccines Completed 02/14/2022, 10/26/2021 VITAMIN D LEVEL ONCE IN A LIFETIME-USE SMARTSET# [id number] Completed 10/03/2022, 09/10/2012, 08/07/2010, Additional history exists [...] this encounter Medical Devices Implanted Type Area Acquisitions Librarian Device Identifier Shelf Expiration Date Model / Serial / Lot Mesh Marlex Large [id number] - [id number] Implanted:Qty : 1 on 09/06/2016 by Hipolito Gonsalez DO at OR [facility] Left: Groin CR BARD : DAVOL 05/21/2021 [id number] / / [id number] Sureclip 16mm 235cm - [id number] Implanted:Qty : 1 on 01/04/2021 by Ailyn Langford MD at ENDOSCOPY [facility] MICRO TECH ENDOSCOPY [id number] 07/06/2022 [id number] / / [id number] documented as of this encounter Visit Diagnoses Diagnosis Osteoporosis, unspecified osteoporosis type, unspecified pathological fracture presence- Primary documented in this encounter Advance Directives * [...] the patient have Health Care Power of Gm Video? No Care Teams Bone Tender Relationship Specialty Start Date End Date Harsh Schmidt MD [address] [facility] [address] [address] PCP - General Family Medicine 03/24/21 documented as of this encounter
--- OUTSIDE RECORDS SUMMARY | 2024-01-17 21:03 | External Medical Summary | Summary of Care ---
Author Name Unknown Organization [facility] Address [address] [facility] [place] [address] Phone [phone] Care Team Providers Care Exhibit Specialist Name Role Phone Harsh Schmidt MD Primary Care Provider [phone] Reason for Visit * Reason Onset Date Comments Test Results 01/11/202401/10 Encounter Details Date Type Department Care Team (Late st Contact Info) Description 01/11/2024 Telephone [facility] [address] [facility] [place] [address] Harsh Schmidt MD [address] [email or web address] [address] Test Results (01/10) Allergies Active Allergy [...] 108 (90 BASE) MCG/ACT inhalerIndications:C OPD exacerbation ([facility]) Inhale 2 Puffs by mouth [...] 5 MG Oral Tablet (Deltasone)Indicatio ns:History of Guillain-Cicero syndrome TAKE ONE TABLET BY MOUTH EVERY [...] ons:COPD, group B, by GOLD 2017 classification ([facility]),Reactive airway disease without complication, unspecified [...] Oral Tablet (Lipitor)Indications :Coronary artery disease involving [place] coronary artery of [place] heart without angina pectoris,Dyslipidemi a, goal LDL [...] Hour (toPROL XL)Indications:Coron carlos artery disease involving [place] coronary artery of [place] heart without angina pectoris Take 1 Tablet [...] FEV1 0.70 PRE BRONCHODILATOR, 64% IMPROVEMENT IN RWL51-10, 12 % IMPROVEMENT IN FEV1 WITH BRONCHODILATOR SPIROMETRY 02/2014 FEV1/FVC 0.77, FEV1 0.86 POST BRONCHODILATOR; 11% IMPROVEMENT IN FEF 25-75 WITH BRONCHODILATOR HTN, goal below 140/90 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 (Household - for [...] encounter Miscellaneous Notes * Telephone Encounter - Joselin Hagan LPN [...] Description 01/30/2024 1:30 PM EDT Office Visit [facility] [address] [place] [address] Paddy Charlton DO [address] [place] [address] 04/30/2024 3:00 PM EST Office Visit Ophthalmology, [place] [address] [address] Dave Garza MD [address] [address] Nurse Marilyn Op[facility] [address] [address] 06/14/2024 11:00 AM EST Office Visit [facility], [place] [address] [phone] Harsh Schmidt MD [address] [address] 08/19/2024 8:00 AM EDT Nurse Only Ancillary 1st Floor, [place] [address] Marilyn Nurse Annual Wellness, RN [address] [address] [...] D LEVEL ONCE IN A LIFETIME-USE SMARTSET# [id number] Completed 10/03/2022, 09/10/2012, 08/07/2010, Additional history exists [...] this encounter Medical Devices Implanted Type Area Booking Police Officer Device Identifier Shelf Expiration Date Model / Serial / Lot Mesh Marlex Large [id number] - [id number] Implanted:Qty : 1 on 09/06/2016 by Hipolito Gonsalez DO at [facility] Left: Groin CR BARD : DAVOL 05/21/2021 [id number] / / [id number] Sureclip 16mm 235cm - [id number] Implanted:Qty : 1 on 01/04/2021 by Ailyn Langford MD at ENDOSCOPY [facility] TECH ENDOSCOPY [id number] 07/06/2022 [id number] / / [id number] documented as of this encounter Visit Diagnoses [...] the patient have Health Care Power of Waredresser? No Care Teams Exhibit Specialist Relationship Specialty Start Date End Date Harsh Schmidt MD [address] [address] PCP - General Family Medicine 03/24/21 documented as of this encounter
--- OUTSIDE RECORDS SUMMARY | 2024-01-17 21:04 | External Medical Summary | Summary of Care ---
Author Name Unknown Organization [facility] Address [address] [facility] [place] [address] Phone [phone] Care Team Providers Care Mounting Inspector Name Role Phone Harsh Schmidt MD Primary Care Provider [phone] Reason for Visit * Reason Comments Physical-Exam Physical for wilton r replacement on 01/16 at [facility]. Encounter Details Date Type Department Care Team (Late st Contact Info) Description 01/06/2024 1:30 PM EDT Office Visit [address] [place] [phone] Ángela Almazan PA-C [address] [place] [phone] Preop examination*; Localized osteoarthrosis, shoulder region, right Allergies Active Allergy Reactions Criticality Noted Date Comments Bee Venom Itching 01/04/2018 Penicillins 11/08/2001 Urticaria documented as of this encounter (statuses as of 01/07/2024) Medications Medication Sig Dispensed Refills Start Date End Date Status METAMUCIL SMOOTH TEXTURE 58.6 % PO POWD 1 scoop per day in 8oz water by mouth 1 unit 11 9 Active CALCIUM 600/VITAMIN D 600-400 MG-UNIT PO TABSIndications:Idi opathic progressive polyneuropathy 1 TABLET TWICE DAILY WITH FOOD 60 Tab 3 1 Active Additional Information Patient taking differently: (No route reported), Informant: Patient, Reported on 08/15/2023 Albuterol Sulfate (ALBUTEROL HFA) 108 (90 BASE) MCG/ACT inhalerIndications: COPD exacerbation (HCC) Inhale 2 Puffs by mouth every 4 hours as needed for Cough, Shortness of Breath or Wheezing. 1 Inhaler 1 9 Active acetaminophen (TYLENOL EXTRA STRENGTH) 500 MG Tablet Take 1 Tablet by mouth every 6 hours as needed for Pain. Active diphenhydrAMINE HCl 25 MG Oral Tablet (Benadryl Allergy) Take 1 Tablet by mouth at bedtime as needed for Sleep. Active predniSONE 5 MG Oral Tablet (Deltasone)Indicati ons:History of Guillain-[place] syndrome TAKE ONE TABLET BY MOUTH EVERY DAY IN THE MORNING. 90 Tablet 3 3 Active Cyanocobalamin 1000 MCG Oral Tablet (Cyanocobalamin) Take 1 Tablet by mouth in the morning. Active Sildenafil Citrate 20 MG Oral Tablet (Revatio) TAKE TWO TABLETS BY MOUTH DAILY 1 hour prior to planned intercourse 60 Tablet 5 4 Active Pulmicort Flexhaler 90 MCG/ACT Inhalation Aerosol Powder Breath Activated (Budesonide)Indicat ions:COPD, group B, by GOLD 2017 classification (HCC),Reactive airway disease without complication, unspecified asthma severity, unspecified whether persistent inhale 1 puff by mouth in the morning and 1 puff before bedtime 1 Each 5 4 Active EpiPen 2-Raffy 0.3 MG/0.3ML Injection Solution Auto-injectorIndica tions:Yellow jacket sting allergy For a severe reaction: Place orange end against the outer thigh, press firmly, hold in place for 10 seconds and go to the Emergency room. 2 Each 3 4 Active Tamsulosin HCl 0.4 MG Oral Capsule (Flomax)Indications :BPH without obstruction/lower urinary tract symptoms Take 1 Capsule by mouth every night at bedtime. 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 In the morning.. 90 Tablet 3 4 Active amLODIPine Besylate 10 MG Oral Tablet (Norvasc)Indication s:HTN, goal below 140/90 Take 1 Tablet by mouth in the morning. In the morning.. 90 Tablet 3 4 Active hydroCHLOROthiazide 12.5 MG Oral CapsuleIndications: HTN, goal below 140/90 Take 1 Capsule by mouth in the morning. Every morning.. 90 Capsule 2 4 Active Losartan Potassium 100 MG Oral Tablet (Cozaar)Indications :HTN, goal below 140/90 TAKE ONE TABLET BY MOUTH ONCE DAILY 90 Tablet 3 4 Active Metoprolol Succinate ER 25 MG Oral Tablet Extended Release 24 Hour (toPROL XL)Indications:Aby nary artery disease involving mary's igloo coronary artery of mary's igloo heart without angina pectoris Take 1 Tablet by mouth in the morning. In the morning.. 90 Tablet 3 4 Active Omeprazole 20 MG Oral Capsule Delayed Release (PriLOSEC) TAKE ONE CAPSULE BY MOUTH ONCE DAILY 90 Capsule 3 4 Active Latanoprost 0.005 % Ophthalmic Solution (Xalatan)Indication s:Primary open angle glaucoma of both eyes, mild stage INSTILL ONE DROP INTO EACH EYE IN THE EVENING 2.5 mL 4 Active Erythromycin 5 MG/GM Ophthalmic Ointment Apply .25 inch ribbon to both upper eyelids 4 times daily for 14 days then daily at bedtime. 3.5 g 3 4 01/06/20 24 Discontinued documented as of this encounter (statuses as of 01/07/2024) Active Problems Problem Noted Date Diagnosed Date [...] FEV1 0.70 PRE BRONCHODILATOR, 64% IMPROVEMENT IN [id number], 12 % IMPROVEMENT IN FEV1 WITH BRONCHODILATOR SPIROMETRY 02/2014 FEV1/FVC 0.77, FEV1 0.86 POST BRONCHODILATOR; 11% IMPROVEMENT IN FEF 25-75 WITH BRONCHODILATOR HTN, goal below 140/90 09/06/2011 manager intermediate (current) use of systemic steroids BPH without [...] scanned into Electronic Medical Record History of Guillain-[place] syndrome documented as of this encounter (statuses as of 01/07/2024) Resolved Problems Problem Noted Date Diagnosed Date [...] as of this encounter (statuses as of 01/07/2024) Immunizations Name Administration Dates Next Due COVID-19 [...] 0 07/19/1960 - 07/20/1975 Smokeless Tobacco: Never Tobacco Cessation:Counseling Given: Not Answered Alcohol Use Standard Drinks/Week Comments Yes 0 [...] on file documented as of this encounter Last Filed Vital Signs Vital Sign Reading Time Taken Comments Blood Pressure 120/60 01/06/2024 1:21 PM EDT Pulse 74 01/06/2024 1:21 PM EDT Temperature 36.1 C (97 F) 01/06/2024 1:21 PM EDT Respiratory Rate 20 01/06/2024 1:21 PM EDT Oxygen Saturation 96% 01/06/2024 1:21 PM EDT Inhaled Oxygen Concentration - - Weight 67 kg (147 lb 11.2 oz) 01/06/2024 1:21 PM EDT Height 154.9 cm (5' 1") 01/06/2024 1:21 PM EDT Body Mass Index 27.91 01/06/2024 1:21 PM EDT documented in this encounter Functional Status Functional Status Response [...] No 06/19/2019 documented as of this encounter Progress Notes * Harsh Schmidt MD - 01/07/2024 6:32 AM EDT Note reviewed in its entirety and agree with findings. Harsh Schmidt MD, DEVORA Family Physician Carrie [place] * Ángela Almazan PA-C - 01/06/2024 1:32 PM EDT Preoperative Medical Clearance Patient: Kevin Ledesma Date of : 1950 Chief Complaint: Pt. is here for pre-operative medical clearance at the request of Dr. Pickard. Planned Surgery: Total reverse right shoulder replacement Date: 01/17/24 Planned anesthesia: general HPI: 73 year old male with a pmh of HTN, HLD. 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 He is feeling well without complaints or concerns. Has much difficulty with movement of the right shoulder Patient Active Problem List Diagnosis History of Guillain-[place] syndrome ADVANCE DIRECTIVE INFORMATION Dyslipidemia, goal LDL below 100 Hereditary and idiopathic peripheral neuropathy CARPAL TUNNEL SYNDROME - bilateral, R>L, as per EMG on 05/25/2010, CERVICAL SPINAL STENOSIS - as per MRI on 05/25/2010 SPINAL STENOSIS-THORACIC - as per MRI on 05/25/2010 CIDP (chronic inflammatory demyelinating polyneuropathy) ([facility]) Osteoporosis BPH without obstruction/lower urinary tract symptoms HTN, goal below 140/90 manager intermediate (current) use of systemic steroids Reactive airway disease HTN, goal below 130/80 History of colon polyps Gastroesophageal reflux disease without esophagitis 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 COPD, group B, by GOLD 2017 classification ([facility]) Past Surgical History: Procedure Laterality Date COLONOSCOPY 2004 COLONOSCOPY, DIAGNOSTIC (RECTUM) 07/25/2013 normal, repeat 10 years/COLONOSCOPY FLEXIBLE PROXIMAL DIAGNOSTIC performed by Mario Kimbrough MD at ENDOSCOPY [facility] COLONOSCOPY, DIAGNOSTIC (RECTUM) N/A 06/27/2017 adenomatous polyp/recall 3 years/COLONOSCOPY FLEXIBLE PROXIMAL DIAGNOSTIC performed by Rufus Grant MD at ENDOSCOPY [facility] COLONOSCOPY, DIAGNOSTIC (RECTUM) N/A 01/04/2021 post-polypectomy scar in recto-sigmoid colon/diverticulosis sigmoid/several ulcerations in colon/biopsies show adenomatous polyps, ischemic colitis/recall 6 months//COLONOSCOPY FLEXIBLE PROXIMAL DIAGNOSTIC performed by Ailyn Langford MD at ENDOSCOPY [facility] COLONOSCOPY, DIAGNOSTIC (RECTUM) 07/27/2021 diverticulosis sigmoid colon/recall 3 years/COLONOSCOPY FLEXIBLE PROXIMAL DIAGNOSTIC performed by Ailyn Langford MD at ENDOSCOPY [facility] EGD, FLEXIBLE, DIAGNOSTIC 03/18/2013 normal bx/UPPER GI ENDOSCOPY DIAGNOSTIC performed by Ailyn Langford MD at ENDOSCOPY [facility] EGD, FLEXIBLE, DIAGNOSTIC N/A 01/05/2018 hiatal hernia/persistent inflammation end of esophagus consistent with acid reflux/EGD EGD, FLEXIBLE, DIAGNOSTIC N/A 01/05/2018 ESOPHAGOGASTRODUODENOSCOPY (EGD), FLEXIBLE, TRANSORAL, DIAGNOSTIC performed by Hira Maloney MD at ENDOSCOPY [facility] EGD, FLEXIBLE, DIAGNOSTIC N/A 01/04/2021 hiatal hernia/ESOPHAGOGASTRODUODENOSCOPY (EGD), FLEXIBLE, TRANSORAL, DIAGNOSTIC performed by Toni Langford MD at ENDOSCOPY [facility] MD BLEPHAROPLASTY UPPER EYELID W/EXCESSIVE SKIN 11/27/2023 Dr. BassB/Kieran Blephroplasty and direct brow left eye REPAIR INITIAL INGUINAL HERNIA REDUCIBLE AGE 5 OR MORE Left 09/06/2016 REPAIR INITIAL INGUINAL HERNIA REDUCIBLE AGE 5 OR MORE performed by Hipolito Gonsalez DO at OR [facility] TOTAL KNEE REPLACEMENT EDU. Right 03/03/2017 UMBIL HERNIA REPAIR (REDUCIBLE) AGE 5+YR N/A 05/12/2017 REPAIR UMBILICAL HERNIA AGE 5 AND OVER performed by Hipolito Gonsalez DO at OR [facility] Current Outpatient Medications Medication Sig Dispense Refill METAMUCIL SMOOTH TEXTURE 58.6 % PO POWD 1 scoop per day in 8oz water by mouth 1 unit 11 CALCIUM 600/VITAMIN D 600-400 MG-UNIT PO TABS 1 TABLET TWICE DAILY WITH FOOD (Patient taking differently: No sig reported) 60 Tab 3 Albuterol Sulfate (ALBUTEROL HFA) 108 (90 BASE) MCG/ACT inhaler Inhale 2 Puffs by mouth every 4 hours as needed for Cough, Shortness of Breath or Wheezing. 1 Inhaler 1 acetaminophen (TYLENOL EXTRA STRENGTH) 500 MG Tablet Take 1 Tablet by mouth every 6 hours as neededfor Pain. diphenhydrAMINE HCl 25 MG Oral Tablet (Benadryl Allergy) Take 1 Tablet by mouth at bedtime as needed for Sleep. predniSONE 5 MG Oral Tablet (Deltasone) TAKE ONE TABLET BY MOUTH EVERY DAY IN THE MORNING. 90 Tablet 3 Cyanocobalamin 1000 MCG Oral Tablet (Cyanocobalamin) Take 1 Tablet by mouth in the morning. Sildenafil Citrate 20 MG Oral Tablet (Revatio) TAKE TWO TABLETS BY MOUTH DAILY 1 hour prior to planned intercourse 60 Tablet 5 Pulmicort Flexhaler 90 MCG/ACT Inhalation Aerosol Powder Breath Activated (Budesonide) inhale 1 puff by mouth in the morning and 1 puff before bedtime 1 Each 5 EpiPen 2-Raffy 0.3 MG/0.3ML Injection Solution Auto-injector For a severe reaction: Place orange end against the outer thigh, press firmly, hold in place for 10 seconds and go to the Emergency room. 2 Each 3 Tamsulosin HCl 0.4 MG Oral Capsule (Flomax) Take 1 Capsule by mouth every night at bedtime. 90 Capsule 3 Atorvastatin Calcium 40 MG Oral Tablet (Lipitor) Take 1 Tablet by mouth in the morning. In the morning.. 90 Tablet 3 amLODIPine Besylate 10 MG Oral Tablet (Norvasc) Take 1 Tablet by mouth in the morning. In the morning.. 90 Tablet 3 hydroCHLOROthiazide 12.5 MG Oral Capsule Take 1 Capsule by mouth in the morning. Every morning.. 90Capsule 2 Losartan Potassium 100 MG Oral Tablet (Cozaar) TAKE ONE TABLET BY MOUTH ONCE DAILY 90 Tablet 3 Metoprolol Succinate ER 25 MG Oral Tablet Extended Release 24 Hour (toPROL XL) Take 1 Tablet by mouth in the morning. In the morning.. 90 Tablet 3 Omeprazole 20 MG Oral Capsule Delayed Release (PriLOSEC) TAKE ONE CAPSULE BY MOUTH ONCE DAILY 90 Capsule 3 Latanoprost 0.005 % Ophthalmic Solution (Xalatan) INSTILL ONE DROP INTO EACH EYE IN THE EVENING 2.5mL 0 Erythromycin 5 MG/GM Ophthalmic Ointment Apply .25 inch ribbon to both upper eyelids 4 times daily for 14 days then daily at bedtime. (Patient not taking: Reported on 01/06/2024) 3.5 g 3 No current facility-administered medications for this visit. Facility-Administered Medications Ordered in Other Visits Medication Dose Route Frequency Provider Last Rate Last Admin metoprolol tartrate (LOPRESSOR) inj Once PRN Dave Esposito CRNA 1 mg at 03/18/13 0814 Review of patient's allergies indicates: Allergen Reactions Bee Venom Itching Penicillins Urticaria Social History Socioeconomic History Marital status: Spouse name: Not on file Number of children: Not on file Years of education: Not on file Highest education level: Not on file Occupational History Not on file Tobacco Use Smoking status: Former Current packs/day: 0.00 Average packs/day: 1 pack/day for 15.0 years (15.0 ttl pk-yrs) Types: Cigarettes Start date: 07/19/1960 Quit date: 07/20/1975 Years since quittin.4 Smokeless tobacco: Never Vaping Use Vaping status: Never Used Substance and Sexual Activity Alcohol use: Yes Comment: wine in evening Drug use: No Sexual activity: Yes Other Topics Concern Not on file Social History Narrative Worked at [employer], 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 Lives with . Two daughters, just had granddaughter in 2020. Lives in [place]. Social Determinants of Health Financial Resource Strain: Low Risk (09/26/2023) Financial Resource Strain Do you have any trouble paying for your medications, or do you think you might in the future? (Adult - for ages 18 years and over): No Does your family have trouble paying for medicine? (Household - for ages 0-17 years): Not on file Food Insecurity: No Food Insecurity (09/26/2023) Food Insecurity Do you need food for this week? (Adult - for ages 18 years and over): No Are you able to get enough food for your family? (Household - for ages 0-17 years): Not on file Does your family need food this week? (Household - for ages 0-17 years): Not on file Do you always have enough food for your family? (Household - for ages 0-17 years): Not on file Transportation Needs: No Transportation Needs (09/26/2023) Transportation Needs Do you have trouble getting a ride to medical visits or work? (Adult - for ages 18 years and over):Never True Does your family have a hard time getting a ride to doctors visits? (Household - for ages 0-17 years): Not on file Has lack of transportation kept you from medical appointments, meetings, work, or from getting things needed for daily living? Check all that apply. (Adult - for ages 18 years and over): Not on file Do you (or your family) have trouble finding or paying for a ride (transportation)? (Household - for ages 0-17 years): Not on file Social Connections: Socially Integrated (09/26/2023) Social Connections How often do you feel lonely or isolated from those around you? (Adult - for ages 18 years and over): Never Housing Stability: Low Risk (09/26/2023) Housing Stability Do you currently live in a snf or have no steady place to sleep at night? (Adult - for ages 18 years and over): No Do you think you are at risk of becoming homeless? (Adult - for ages 18 years and over): No Does your family worry about paying for your home or becoming homeless? (Household - for ages 0-17 years): Not on file Are you homeless or worried that you might be in the future? (Adult - for ages 18 years and over): Not on file Are you (or your family) homeless or worried that you might be in the future? (Household - for ages0-17 years): Not on file Family History Problem Relation Name Age of Onset Hypertension Mother Cancer Grandmother (Paternal) Brain Lung Disorder Grandmother (Paternal) TB Heart Disorder Grandfather (Paternal) CO 60's Heart Disorder Uncle (Unspecified) CO 40's Gastro-intestinal disorder Brother Crohn's Review Of Systems Gen: Good health - no unexplained weight loss, fatigue or fever. Skin: Denies current skin lesions or rash Eyes: Denies ocular problems Ears/Nose/Throat:No dental problems or dysphagia. No recent coryza or sore throat. Respiratory: Denies cough, SOB or h/o asthma. Cardiovascular: No h/o CAD. Denies chest pain, MARROQUIN, orthopnea, edema or palpitations. Gastrointestinal: Denies h/o PUD, GERD or significant dyspeptic symptoms. Genitourinary: Denies any urinary tract problems Musculoskeletal:Denies any significant joint or spinal problems. Other than the right shoulder Neurologic: No h/o seizures, syncope, or vertigo. Psychiatric: Denies h/o psychiatric illness. Hematologic/Lymphatic/Immunologic: Denies h/o significant anemia, bleeding disorder, or malignancy. Endocrine:Denies h/o diabetes, thyroid disorder, or adrenal dysfunction. He denies significant use of steroid medication. BP 120/60 | Pulse 74 | Temp 36.1 C (97 F) (Tympanic) | Resp 20 | Ht 1.549 m (5' 1") | Wt 67 kg (147 lb 11.2 oz) | SpO2 96% | BMI 27.91 kg/m | BSA 1.7 m PHYSICAL EXAMINATION: The patient is a well developed, well nourished male who is alert, oriented, cooperative with the examination. HEENT: Normocephalic, atraumatic. EOMI. ANKIT. Conjunctivae pink. Sclerae white. Tympanic membranes preston and non-bulging bilaterally. No cerumen impaction. Nose without discharge. Buccal mucosa moist without lesion. Dentition in good repair. NECK: Supple. No lymphadenopathy, no jugular venous distention, no carotid bruits, no thyroid enlargement. LUNGS: Clear to auscultation. HEART: Regular rate and rhythm. S1 and S2 are normal. No murmurs, gallops or rubs appreciated. ABDOMEN: Normal active bowel sounds, non-distended, soft, non-tender. No organomegaly or masses. SPINE: FROM w/o pain, no deformities or tenderness. EXTREMITIES: FROM all joints with the exception of the right shoulder. Arm hanging at his side. . No clubbing, cyanosis, or edema. Peripheral pulses are intact. NEUROLOGICAL: AAOx3, CN II-XII intact, no focal deficits, cerebellar signs are negative. SKIN: no significant lesions or rashes. Preop examination (Primary) Localized osteoarthrosis, shoulder region, right Follow Up: Return for As needed with PCP. | For: As needed with PCP PRE-OPERATIVE TESTS: ECG: unavailable today Done at [facility]: unavailable today Done at [facility] PRE-OPERATIVE CLEARANCE DISCUSSION: There is no medical contraindication for the proposed surgery and anesthesia. Concerns/Precautions: No concerns about upcoming surgery Ángela Almazan PA-C [address] [place] [phone] documented in this encounter Nursing Notes * Kim Pena CCMA - 01/06/2024 1:18 PM EDT Chief Complaint Patient presents with Physical-Exam Physical for shoulder replacement on 01/16 at [facility]. Pt will ask his If its ok to get the flu shot after surgery. He also had Guillain-[place] Syndrome documented in this encounter Plan of Treatment Upcoming Encounters Date Type Department Care Team (Late st Contact Info) Description 01/11/2024 9:00 AM EDT Appointment Radiology, [facility] [address] [facility] [place] [phone] 01/30/2024 1:30 PM EDT Office Visit [facility] [address] [place] [address] Paddy Charlton DO [address] [place] [address] 04/30/2024 3:00 PM EST Office Visit Ophthalmology, [place] [address] [facility] [place] [address] Dave Garza MD [address] [facility] [place] [address] Nurse Marilyn Ophthalmology [address] [facility] [place] [address] 06/14/2024 11:00 AM EST Office Visit [facility], [place] [address] [facility] [place] [phone] Harsh Schmidt MD [address] [facility] [place] [id number] 08/19/2024 8:00 AM EDT Nurse Only Ancillary 1st Floor, [place] [address] [place] [address] Marilyn Nurse Annual Wellness, RN [address] [place] [address] Scheduled Procedures Name Priority Associated Diagnoses Date/Ti me COLONOSCOPY FLEXIBLE PROXIMA L DIAGNOSTIC Recall Ischemic colitis (HCC) History of colonic polyps Health Maintenance Due Date Last Done Comments Cologuard 1994 Sigmoidoscopy 1994 Fecal Occult Blood Test 03/18/2014 03/18/20 13, 05/06/2008, 04/03/2007, Additional history exists *BISPHONATE OR OTHER ACCEPTABLE MEDICATION NEEDED FOR OSTEOPOROSIS (REFER TO SMARTSET #1146) 09/13/2019 DXA Scan 11/30/2023 11/29/2021, 10/23, 05/23/2016, Additional history exists COVID-19 Vaccine ( season) 2023 05/19/2021, 07/13/2020, 06/17/2020 Influenza Vaccine (FLU shot) (#1) 2023 02/17/2023, 02/09/2022, 02/02/2021, Additional history exists GFR 03/23/2024 03/23/2023, 09/22, 01/04/2021, Additional history exists Colonoscopy 07/27/2024 07/27/2021, 040 08/2021, 01/04/2021, Additional history exists Colorectal Cancer Screening 07/27/2024 Adult Wellness Visit 08/14/2024 08/15/2023 Depression Screening 08/14/2024 08/15/2023 HOME BP CUFF VALIDATION YEARLY 08/14/2024 08/15/2023, 07/09/2019, 10/27/2016 O2 ASSESSMENT COMPLETED IN PAST YEAR FOR COPD 01/05/2025 01/06/2024 Albumin/Creatinine Ratio 03/23/2026 03/23/2023, 020 10/2019 Lipid Panel 03/23/2028 03/23/2023, 09/22, 09/25/2020, Additional history exists DTap/Tdap Vaccines (3 - Td or Tdap) 10/27/2031 10/26/2021, 03/07/2011, 09/02/2001 Pneumococcal Vaccine: 65+ Years Completed 04/09/2019, 08/04/2015, 02/10/2014 AAA Screening Completed 01/06/2021, 07/0 09/2017, 02/18/2016, Additional history exists Zoster Vaccines Completed 02/14/2022, 10/26/2021 VITAMIN D LEVEL ONCE IN A LIFETIME-USE SMARTSET# [id number] Completed 10/03/2022, 09/10/2012, 08/07/2010, Additional history exists [...] this encounter Medical Devices Implanted Type Area Newspaper Editor Managing Device Identifier Shelf Expiration Date Model / Serial / Lot Mesh Marlex Large [id number] - [id number] Implanted:Qty : 1 on 09/06/2016 by Hipolito Gonsalez DO at OR [facility] Left: Groin CR BARD : DAVOL 05/21/2021 [id number] / / [id number] Sureclip 16mm 235cm - [id number] Implanted:Qty : 1 on 01/04/2021 by Ailyn Langford MD at ENDOSCOPY [facility] Lytro TECH ENDOSCOPY [id number] 07/06/2022 [id number] / / [id number] documented as of this encounter Visit Diagnoses Diagnosis Preop examination- Primary Preoperative examination, unspecified Localized osteoarthrosis, shoulder region, right documented in this encounter Advance Directives * [...] patient have Health Care Power of Attor mariebll? No * Full Code Date Activated Date Inactivated Comments 05/25/2010 5:07 PM 05/26/2010 8:09 PM This order ref lects the patients wishes and were consensually agreed upon. Question Answer Comments Discussion of Advance Directives occurred with: Patient Does the patient have a Living Will? Yes, not cu rrently available Does the patient have Health Care Power of Management Professional? No Care Teams Mounting Inspector Relationship Specialty Start Date End Date Harsh Schmidt MD [address] [place] [phone] PCP - General Family Medicine 03/24/21 documented as of this encounter
--- OUTSIDE RECORDS SUMMARY | 2024-01-17 21:04 | External Medical Summary | Summary of Care ---
Author Name Unknown Organization [facility] Address [address] [place] [facility] [place] [address] Phone [phone] Care Team Providers Care Vp Digital Marketing Social Media And Crm Name Role Phone Harsh Schmidt MD Primary Care Provider [phone] Reason for Visit * Reason Comments Physical-Exam Physical for wilton r replacement on 01/[address] [facility]. Encounter Details Date Type Department Care Team (Late st Contact Info) Description 01/06/2024 1:30 PM EDT Office Visit [address] [place] [phone] Ángela Almazan PA-C [address] [place] [phone] Preop examination*; Localized osteoarthrosis, shoulder region, right Allergies Active Allergy Reactions Criticality Noted Date Comments Bee Venom Itching 01/04/2018 Penicillins 11/08/2001 Urticaria documented as of this encounter (statuses as of 01/06/2024) Medications Medication Sig Dispensed Refills Start Date [...] 5 MG Oral Tablet (Deltasone)Indicati ons:History of Guillain-Wing syndrome TAKE ONE TABLET BY MOUTH EVERY [...] Oral Tablet (Lipitor)Indication s:Coronary artery disease involving [place] coronary artery of [place] heart without angina pectoris,Dyslipidem ia, goal LDL [...] Hour (toPROL XL)Indications:Aby nary artery disease involving [place] coronary artery of [place] heart without angina pectoris Take 1 Tablet [...] as of this encounter (statuses as of 01/06/2024) Active Problems Problem Noted Date Diagnosed Date [...] FEV1 0.70 PRE BRONCHODILATOR, 64% IMPROVEMENT IN JEA23-31, 12 % IMPROVEMENT IN FEV1 WITH BRONCHODILATOR SPIROMETRY 02/2014 FEV1/FVC 0.77, FEV1 0.86 POST BRONCHODILATOR; 11% IMPROVEMENT IN FEF 25-75 WITH BRONCHODILATOR HTN, goal below 140/90 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. Pt will ask his drGreg If its ok to get the flu shot after surgery. He also had Guillain-Wing Syndrome documented in this encounter Plan of Treatment Upcoming Encounters Date Type Department Care Team (Late st Contact Info) Description 01/11/2024 9:00 AM EDT Appointment Radiology, [facility] [address] [place] [address] 01/30/2024 1:30 PM EDT Office Visit [facility] [address] [place] [address] Paddy Charlton DO 16 [place] [address] 04/30/2024 3:00 PM EST Office Visit [facility], [place] [facility] [address] Dave Garza MD [facility] [address] Nurse Marilyn Ophthalmology [address] [place] [address] 06/14/2024 11:00 AM EST Office Visit [facility] [place] [facility] [phone] Harsh Schmidt MD 21 [place] [address] 08/19/2024 8:00 AM EDT Nurse Only Ancillary 1st Floor, [place] [address] [place] [address] Marilyn Nurse Annual Wellness, RN [facility] [place] [address] Scheduled Procedures Name Priority Associated Diagnoses Date/Ti [...] 01/04/2021, Additional history exists Colonoscopy 07/27/2024 07/27/2021, 0 08/2021, 01/04/2021, Additional history exists Colorectal Cancer Screening 07/27/2024 Adult Wellness Visit 08/14/2024 08/15/2023 Depression Screening 08/14/2024 08/15/2023 HOME BP CUFF VALIDATION YEARLY 08/14/2024 08/15/2023, 07/09/2019, 10/27/2016 O2 ASSESSMENT COMPLETED IN PAST YEAR FOR COPD 01/05/2025 01/06/2024 Albumin/Creatinine Ratio 03/23/2026 03/23/2023, 0210/2019 Lipid Panel 03/23/2028 03/23/2023, 09/22, 09/25/2020, Additional history exists DTap/Tdap Vaccines (3 - Td or Tdap) 10/27/2031 10/26/2021, 03/07/2011, 09/02/2001 Pneumococcal Vaccine: 65+ Years Completed 04/09/2019, 08/04/2015, 02/10/2014 AAA Screening Completed 01/06/2021, 07/0 09/2017, 02/18/2016, Additional history exists Zoster Vaccines Completed 02/14/2022, 10/26/2021 VITAMIN D LEVEL ONCE IN A LIFETIME-USE SMARTSET# [id number] Completed 10/03/2022, 09/10/2012, 08/07/2010, Additional history exists [...] this encounter Medical Devices Implanted Type Area Biodiesel Engineering Manager Device Identifier Shelf Expiration Date Model / Serial / Lot Mesh Aaron Large [id number] - [id number] Implanted:Qty : 1 on 09/06/2016 by Hipolito Gnosalez DO at OR [facility] Left: Groin CR BARD : DAVOL 05/21/2021 [id number] / / [id number] Sureclip 16mm 235cm - [id number] Implanted:Qty : 1 on 01/04/2021 by Ailyn Langford MD at ENDOSCOPY [facility] [employer] TECH ENDOSCOPY [id number] 07/06/2022 [id number] / / [id number] documented as of this encounter Visit Diagnoses [...] the patient have Health Care Power of Solderer Barrel Ribs? No Care Teams Vp Digital Marketing Social Media And Crm Relationship Specialty Start Date End Date Harsh Schmidt MD 21 [place] [address] PCP - General Family Medicine 03/24/21 documented as of this encounter
--- OUTSIDE RECORDS SUMMARY | 2024-01-17 21:04 | External Medical Summary | Summary of Care ---
Author Name Unknown Organization [facility] Address [address] [facility] [place] [place] [address] Phone [phone] Care Team Providers Care Corrective Therapist Name Role Phone Harsh Schmidt MD Primary Care Provider [phone] Encounter Details Date Type Department Care Team (Late st Contact Info) Description [facility] [facility] [place] [phone] Harsh Schmidt MD [facility] [place] [address] Allergies Active Allergy Reactions Criticality Noted Date [...] 5 MG Oral Tablet (Deltasone)Indicatio ns:History of Guillain-Dover syndrome TAKE ONE TABLET BY MOUTH EVERY [...] Oral Tablet (Lipitor)Indications :Coronary artery disease involving [place] coronary artery of [place] heart without angina pectoris,Dyslipidemi a, goal LDL [...] Hour (toPROL XL)Indications:Coron carlos artery disease involving [place] coronary artery of holy cross heart without angina pectoris Take 1 Tablet [...] FEV1 0.70 PRE BRONCHODILATOR, 64% IMPROVEMENT IN QIM74-51, 12 % IMPROVEMENT IN FEV1 WITH BRONCHODILATOR SPIROMETRY 02/2014 FEV1/FVC 0.77, FEV1 0.86 POST BRONCHODILATOR; 11% IMPROVEMENT IN FEF 25-75 WITH BRONCHODILATOR HTN, goal below 140/90 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 BPH without [...] scanned into Electronic Medical Record History of Guillain-Dover syndrome documented as of this encounter (statuses [...] encounter Miscellaneous Notes * Telephone Encounter - Harsh Schmidt MD [...] Description 01/30/2024 1:30 PM EDT Office Visit [facility] [address] [place] [address] Paddy Charlton DO 16 [place] [address] 04/30/2024 3:00 PM EST Office Visit Ophthalmology, [place] 21 [facility] [place] [address] Dave Garza MD 21 [facility] [place] [address] Nurse Marilyn Ophthalmology 21 [facility] [place] [address] 06/14/2024 11:00 AM EST Office Visit Family [facility], [place] 21 [facility] [place] [phone] Harsh Schmidt MD 21 [facility] [place] [address] 08/19/2024 8:00 AM EDT Nurse Only Ancillary 1st Floor, [place] 21 [place] [address] Nurse Marilyn Annual Wellness, RN [address] [place] [address] Scheduled Procedures Name Priority Associated Diagnoses Date/Ti [...] D LEVEL ONCE IN A LIFETIME-USE SMARTSET# [id number] Completed 10/03/2022, 09/10/2012, 08/07/2010, Additional history exists [...] this encounter Medical Devices Implanted Type Area Paint Grinder Stone Mill Device Identifier Shelf Expiration Date Model / Serial / Lot Mesh Aaron Large [id number] - [id number] Implanted:Qty : 1 on 09/06/2016 by Hipolito Gonsalez DO at OR [facility] Left: Groin CR BARD : DAVOL 05/21/2021 [id number] / / [id number] Sureclip 16mm 235cm - [id number] Implanted:Qty : 1 on 01/04/2021 by Ailyn Langford MD at ENDOSCOPY [facility] MI[employer] TECH ENDOSCOPY [id number] 07/06/2022 [id number] / / [id number] documented as of this encounter Visit Diagnoses [...] the patient have Health Care Power of Pipeline Superintendent Division? No Care Teams Corrective Therapist Relationship Specialty Start Date End Date Harsh Schmidt MD 21 [place] [phone] PCP - General Family Medicine 03/24/21 documented as of this encounter
--- OUTSIDE RECORDS SUMMARY | 2024-01-17 21:04 | External Medical Summary | Summary of Care ---
Author Name Unknown Organization [facility] Address [address] [facility] [place] [address] Phone [phone] Care Team Providers Care Camera Repairer Name Role Phone Harsh Schmidt MD Primary Care Provider [phone] Reason for Visit * Reason Comments eRx-Medication Refill Encounter Details Date Type Department Care Team (Late st Contact Info) Description 12/30/2023 Refill Ophthalmology, [place] 21 [facility] [place] [address] Dave Garza MD 21 [facility] [place] [address] Primary open angle glaucoma of both eyes, mild stage Allergies Active Allergy Reactions Criticality Noted Date Comments Bee Venom Itching 01/04/2018 Penicillins 11/08/2001 Urticaria documented as of this encounter (statuses as of 01/01/2024) Medications Medication Sig Dispensed Refills Start Date [...] 108 (90 BASE) MCG/ACT inhalerIndications: COPD exacerbation ([facility]) Inhale 2 Puffs by mouth every 4 [...] 5 MG Oral Tablet (Deltasone)Indicati ons:History of Guillain-Strawberry syndrome TAKE ONE TABLET BY MOUTH EVERY [...] ions:COPD, group B, by GOLD 2017 classification ([facility]),Reactive airway disease without complication, unspecified asthma severity, [...] Oral Tablet (Lipitor)Indication s:Coronary artery disease involving [place] coronary artery of [place] heart without angina pectoris,Dyslipidem ia, goal LDL [...] Hour (toPROL XL)Indications:Aby nary artery disease involving [place] coronary artery of [place] heart without angina pectoris Take 1 Tablet by mouth in the morning. In the morning.. 90 Tablet 3 4 Active Omeprazole 20 MG Oral Capsule Delayed Release (PriLOSEC) TAKE ONE CAPSULE BY MOUTH ONCE DAILY 90 Capsule 3 4 Active Erythromycin 5 MG/GM Ophthalmic Ointment Apply .25 inch ribbon to both upper eyelids 4 times daily for 14 days then daily at bedtime. 3.5 g 3 4 Active Latanoprost 0.005 % Ophthalmic Solution (Xalatan)Indication s:Primary open angle glaucoma of both eyes, mild stage INSTILL ONE DROP INTO EACH EYE IN THE EVENING 2.5 mL 4 Active Latanoprost 0.005 % Ophthalmic Solution (Xalatan)Indication s:Primary open angle glaucoma of both eyes, mild stage INSTILL ONE DROP INTO EACH EYE IN THE EVENING 2.5 mL 4 01/01/20 24 Discontinued documented as of this encounter (statuses as of 01/01/2024) Active Problems Problem Noted Date Diagnosed Date COPD, group B, by GOLD 2017 classification 11/01 Overview: Per COPD GOLD Classification Other specified glaucoma 03/05/2019 Yellow jacket sting allergy 01/08/2018 History of colon polyps 08/15/2017 Overview: TUBULAR ADENOMA 2018 COLONOSCOPY Gastroesophageal reflux disease without esophagi tis 08/15/2017 Overview: NO BENEFIT WITH USING H2 SOFIE HTN, goal below 130/80 03/03/2016 Reactive airway disease 01/13/2014 Overview: SPIROMETRY 09/2013 FEV1/FVC 0.92, FEV1 0.70 PRE BRONCHODILATOR, 64% IMPROVEMENT IN KNI24-42, 12 % IMPROVEMENT IN FEV1 WITH BRONCHODILATOR SPIROMETRY 02/2014 FEV1/FVC 0.77, FEV1 0.86 POST BRONCHODILATOR; 11% IMPROVEMENT IN FEF 25-75 WITH BRONCHODILATOR HTN, goal below 140/90 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 BPH without obstruction/lower urinary tract symp toms 03/07/2011 Osteoporosis 07/30/2010 CIDP (chronic inflammatory demyelinating polyneu ropathy) 06/22/2010 CARPAL TUNNEL SYNDROME - jeanette ateral, R>L, as per EMG on 05/25/2010, 05/26/2010 CERVICAL SPINAL STENOSIS - as per MRI on 011 05/26/2010 SPINAL STENOSIS-THORACIC - as per MRI on 011 05/26/2010 Hereditary and idiopathic peripheral neuropathy 05/25/2010 Dyslipidemia, goal LDL below 100 05/24/2010 ADVANCE DIRECTIVE INFORMATION 12/02/2004 Overview: Yes, Patient instructed to provide copy of advance directive for provider to review and to be scanned into Electronic Medical Record History of Guillain-Strawberry syndrome documented as of this encounter (statuses as of 01/01/2024) Resolved Problems Problem Noted Date Diagnosed Date Resolved Date COPD, moderate 09/29/2020 11/04/2021 Overview: Per COPD GOLD Classification COPD, group B, by GOLD 2017 classification 07/01/2019 09/09/2019 Overview: Per COPD GOLD Classification Chest pain 06/19/2019 06/20/2019 MARROQUIN (dyspnea on exertion) 06/19/2019 Cervicalgia 07/18/2018 10/08/2018 COPD, moderate 06/07/2018 07/04/2019 Overview: Per COPD GOLD Classification Malaise and fatigue 06/16/2010 03/07/20 11 Proximal Muscle Weakness 06/16/2010 Dyslipidemia, goal to be determined 04/09/2009 05/24/2010 Overview: Per Lipid Taxonomy. HYPERCHOLESTEROLEMIA 009 Overview: Per Lipid Taxonomy. ANXIETY DISORDER 03/07/2011 Other allergic rhinitis 02/22 Overview: ICD-10 update of inactive term documented as of this encounter (statuses as of 01/01/2024) Immunizations Name Administration Dates Next Due COVID-19 [...] 09/26/2023 Does the household have a re lar source of income? (Household - for ages [...] encounter Miscellaneous Notes * Telephone Encounter - Dave Garza MD - 01/01/2024 10:09 AM EDTSigned Prescriptions: Disp Refills Latanoprost 0.005 % Ophthalmic Solution (X*2.5 mL 0 Sig: INSTILL ONE DROP INTO EACH EYE IN THE EVENING Authorizing Provider: DAVE GARZA * Telephone Encounter - Vicenta Gama COA - 01/01/2024 8:21 AM EDTPending Prescriptions: Disp Refills Latanoprost 0.005 % Ophthalmic Solution [P*2.5 mL 0 Sig: INSTILL ONE DROP INTO EACH EYE IN THE EVENING * Telephone Encounter - Interface, E-Rx Ss Inbound - 01/01/2024 6:01 AM EDT Pending Prescriptions: Disp Refills Latanoprost 0.005 % Ophthalmic Solution [P*2.5 mL 0 Sig: INSTILL ONE DROP INTO EACH EYE IN THE EVENING documented in this encounter Plan of Treatment Upcoming Encounters Date Type Department Care Team (Late st Contact Info) Description 01/06/2024 1:30 PM EDT Office [facility] [phone] Ángela Almazan PA-C [address] [place] [address] 01/11/2024 9:00 AM EDT Appointment Radiology, [address] [place] [address] 01/30/2024 1:30 PM EDT Office Visit [address] [address] Paddy Charlton DO 16 [place] [address] 04/30/2024 3:00 PM EST Office Visit Ophthalmology, [place] [address] [place] [address] Dave Garza MD 21 [facility] [place] [address] Nurse Marilyn Ophthalmology 21 [facility] [place] [address] 06/14/2024 11:00 AM EST Office Visit Family Practice, [place] [address] [place] [phone] Harsh Schmidt MD 21 [place] [address] 08/19/2024 8:00 AM EDT Nurse Only Ancillary 1st Floor, [place] 21 [place] [phone] Marilyn, Nurse Annual Wellness, RN 21 [place] [...] ASSESSMENT COMPLETED IN PAST YEAR FOR COPD 10/09/2024 10/10/2023 Albumin/Creatinine Ratio 03/23/2026 03/23/2023, 02/0 10/2019 Lipid Panel 03/23/2028 03/23/2023, 09/22, 09/25/2020, Additional history exists DTap/Tdap Vaccines (3 - Td or Tdap) 10/27/2031 10/26/2021, 03/07/2011, 09/02/2001 Pneumococcal Vaccine: 65+ Years Completed 04/09/2019, 08/04/2015, 02/10/2014 AAA Screening Completed 01/06/2021, 09/2017, 02/18/2016, Additional history exists Zoster Vaccines Completed 02/14/2022, 10/26/2021 VITAMIN D LEVEL ONCE IN A LIFETIME-USE SMARTSET# [id number] Completed 10/03/2022, 09/10/2012, 08/07/2010, Additional history exists [...] this encounter Medical Devices Implanted Type Area Sandwich Counter Attendant Device Identifier Shelf Expiration Date Model / Serial / Lot Mesh Marlex Large [id number] - [id number] Implanted:Qty : 1 on 09/06/2016 by Hipolito Gonsalez DO at OR [facility] Left: Groin CR BARD : DAVOL 05/21/2021 [id number] / / [id number] Sureclip 16mm 235cm - [id number] Implanted:Qty : 1 on 01/04/2021 by iAlyn Langford MD at [facility]COPY [facility] MICRO TECH ENDOSCOPY [id number] 07/06/2022 [id number] / / [id number] documented as of this encounter Visit Diagnoses Diagnosis Primary open angle glaucoma of both eyes, mild stage documented in this encounter Advance Directives * [...] the patient have Health Care Power of Champion Of Sustainable Design? No Care Teams Camera Repairer Relationship Specialty Start Date End Date Harsh Schmidt MD 21 [place] [address] PCP - General Family Medicine 03/24/21 documented as of this encounter
--- OUTSIDE RECORDS SUMMARY | 2024-01-17 21:04 | External Medical Summary | Summary of Care ---
Author Name Unknown Organization [facility] Address [address] [place] [address] Phone [phone] Care Team Providers Care Software Applications Architect Name Role Phone Harhs Schmidt MD Primary Care Provider [phone] Reason for Visit * Reason Comments Post-Op Encounter Details Date Type Department Care Team (Late st Contact Info) Description 12/12/2023 2:00 PM EDT Office Visit [address] [address] Paddy Charlton, [address] [place] [address] States following surgery of eye and adnexa* Allergies Active Allergy Reactions Criticality Noted Date Comments Bee Venom Itching 01/04/2018 Penicillins 11/08/2001 Urticaria documented as of this encounter (statuses as of 12/27/2023) Medications Medication Sig Dispensed Refills Start Date [...] 108 (90 BASE) MCG/ACT inhalerIndications:C OPD exacerbation ([facility]) Inhale 2 Puffs by mouth every 4 [...] 5 MG Oral Tablet (Deltasone)Indicatio ns:History of Guillain-Jefferson syndrome TAKE ONE TABLET BY MOUTH EVERY [...] ons:COPD, group B, by GOLD 2017 classification ([facility]),Reactive airway disease without complication, unspecified asthma severity, [...] Oral Tablet (Lipitor)Indications :Coronary artery disease involving cheesh-na coronary artery of cheesh-na heart without angina pectoris,Dyslipidemi a, goal LDL [...] Hour (toPROL XL)Indications:Coron carlos artery disease involving cheesh-na coronary artery of cheesh-na heart without angina pectoris Take 1 Tablet by mouth in the morning. In the morning.. 90 Tablet 3 10/10/2023 Active Omeprazole 20 MG Oral Capsule Delayed Release (PriLOSEC) TAKE ONE CAPSULE BY MOUTH ONCE DAILY 90 Capsule 3 11/14/2023 Active Erythromycin 5 MG/GM Ophthalmic Ointment Apply .25 inch ribbon to both upper eyelids 4 times daily for 14 days then daily at bedtime. 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 Nursing notes reviewed. See below and in encounter for exam details. Base Eye Exam Visual Acuity (Snellen - Linear) Right Left Dist cc 20/25 +2 20/25 +2 Tonometry (Tonopen, 1:38 PM) Right Left Pressure 14 13 Neuro/Psych Oriented x3: Yes (Z98.890) States following surgery of eye and adnexa (primary encounter diagnosis) Plan: looks great post bleph and brow L side due to prior GBS -allow to heal -brow suture removed -cont ointment Patient doing well. Recommend cont lubrication as instructed. Sun avoidance while healing. Use AT as needed for any post operative MILLY issues. All drops reviewed with patient and compliance stressed - personal instruction sheet provided by me. Call me with any concerns, pain, vision changes - phone numbers provided for clinic and emergency. Paddy Charlton DO documented in this encounter Nursing Notes * Angélica Contreras LPN - 12/12/2023 1:33 PM EDT Kevin Ledesma is a 73 year old male who presents for PO follow up. Patient lost sutures in right lid. Last Visit: 11/27/2023 (in office), Visit date not found (telemedicine) He currently states no change in vision. Are you diabetic? No Current Ophthalmic Medications: Latanoprost 0.01% op soln 1 gtt both eyes QPM Erythromycin ointment QID Vision, Tonometry, current glass prescription and pupil check if done can be found in the ophth exam documented in this encounter Plan of Treatment Upcoming Encounters Date Type Department Care Team (Late st Contact Info) Description 01/06/2024 1:30 PM EDT Office Visit [address] [place] [id number] Ángela Almazan PA-C [address] [place] [address] 01/11/2024 9:00 AM EDT Appointment Radiology, [facility] [address] [facility] [place] [address] 01/30/2024 1:30 PM EDT Office Visit [facility] [address] [facility] [place] [address] Paddy Charlton DO [address] [place] [address] 04/30/2024 3:00 PM EST Office Visit Ophthalmology, [place] [address] [facility] [place] [address] Dave Garza MD [address] [place] [address] Marilyn Nurse Ophthalmology [address] [place] [address] 06/14/2024 11:00 AM EST Office Visit Family Practice, [place] [address] [facility] [place] [phone] Harsh Schmidt MD [address] [facility] [place] [address] 08/19/2024 8:00 AM EDT Nurse Only Ancillary 1st Floor, [address] [place] [address] Marilyn, Nurse Annual Wellness, RN [address] [facility] [place] [address] Scheduled Procedures Name Priority Associated Diagnoses Date/Ti [...] COPD 10/09/2024 10/10/2023 Albumin/Creatinine Ratio 03/23/2026 03/23/2023, 020 10/2019 Lipid Panel 03/23/2028 03/23/2023, 09/22, 09/25/2020, Additional history exists DTap/Tdap Vaccines (3 - Td or Tdap) 10/27/2031 10/26/2021, 03/07/2011, 09/02/2001 Pneumococcal Vaccine: 65+ Years Completed 04/09/2019, 08/04/2015, 02/10/2014 AAA Screening Completed 01/06/2021, 070 09/2017, 02/18/2016, Additional history exists Zoster Vaccines Completed 02/14/2022, 10/26/2021 VITAMIN D LEVEL ONCE IN A LIFETIME-USE SMARTSET# [id number] Completed 10/03/2022, 09/10/2012, 08/07/2010, Additional history exists [...] this encounter Medical Devices Implanted Type Area Completion Supervisor Device Identifier Shelf Expiration Date Model / Serial / Lot Mesh Marlex Large [id number] - [id number] Implanted:Qty : 1 on 09/06/2016 by Hipolito Gonsalez DO at OR [facility] Left: Groin CR BARD : DAVOL 05/21/2021 [id number] / / [id number] Sureclip 16mm 235cm - [id number] Implanted:Qty : 1 on 01/04/2021 by Ailyn Langford MD at ENDOSCOPY [facility] MICRO TECH ENDOSCOPY [id number] 07/06/2022 [id number] / / [id number] documented as of this encounter Visit Diagnoses Diagnosis States following surgery of eye and adnexa- Primary Other states following surgery of eye and adnexa documented in this encounter Advance Directives * [...] the patient have Health Care Power of Industrial Hygiene Technician? No Care Teams Software Applications Architect Relationship Specialty Start Date End Date Harsh Schmidt MD [address] [place] [id number] PCP - General Family Medicine 03/24/21 documented as of this encounter
[2024-01-17] MEDS: DOCUSATE SODIUM 100 MG CAP PO SCH (21:29)
[2024-01-17] MEDS: SENNA 8.6 MG TAB PO SCH (21:29)
[2024-01-17] MEDS: amLODIPine BESYLATE 5 MG TAB PO SCH (21:30)
[2024-01-17] MEDS: TAMSULOSIN HCL 0.4 MG CAP PO SCH (21:30)
[2024-01-17] MEDS: CALCIUM 600MG + VIT D 400 IU TAB PO SCH (21:31)
[2024-01-17] MEDS: METOPROLOL SUCC 25MG EXT REL TAB PO SCH (21:31)
[2024-01-17] MEDS: TRANEXAMIC ACID / 0.7% NACL 1,000 MG/100 ML BAG IV SCH (22:33)
[2024-01-18] MEDS ORDERED: VANCOMYCIN HCL 1,000 MG in SODIUM CHLORIDE 0.9% 500 ML IV SCH (03:00)
[2024-01-18] MEDS: VANCOMYCIN HCL 1,000 MG in SODIUM CHLORIDE 0.9% 250 ML IV SCH (03:04)
[2024-01-18 07:14] LABS: Basophils # (auto) 0.01 K/uL (0.00-0.20); Basophils % (auto) 0.1 %; Hemoglobin 12.2 g/dl (14.0-18.0); Immature Granulocytes # (auto) 0.07 K/uL (0.01-0.20); Immature Granulocytes % (auto) 0.5 %; Mean Corpuscular Hemoglobin 29.3 pg (25.0-34.0); Mean Corpuscular Hgb Conc 33.9 g/dL (32.0-36.0); Mean Corpuscular Volume 86.5 fL (80.0-100.0); Mean Platelet Volume 8.7 fL (9.4-12.4); Monocytes # (auto) 0.68 K/uL (0.11-0.59); Monocytes % (auto) 4.9 %; Neutrophils # (auto) 12.53 K/uL (1.40-6.50); Neutrophils % (auto) 89.5 %; Platelet Count 205 K/uL (130-400); RDW Coefficient of Variation 14.3 % (11.5-14.5); Red Blood Count 4.16 M/uL (4.70-6.10); White Blood Count 13.99 K/ul (4.8-10.8)
[2024-01-18 07:53] VITALS: BP 137/66; RESP 18; TEMP 98.2; O2SAT 93
--- NOTE | 2024-01-18 08:01 | Orthopedic Progress Note ---
Date of Service January 18, 2024 Assessment & Plan (1) Rotator cuff tear arthropathy of right shoulder: Plan: Postop day 1 reverse total shoulder replacement. Patient's drain can be discontinued today and patient can be discharged to home. He will do home ex ercise for 2 weeks and then will start PT afterwards. He will follow-up in the office in 2 weeks for staple removal. 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 Plan is reverse total shoulder arthroplasty biceps tenodesis. (2) Osteoarthritis of right glenohumeral joint: (3) Biceps tendinopathy of right upper extremity: Admission and Anticipated Discharge Date Admission Date: January 17, 2024 Subjective No significant pain feels well. Still some numbness in the hand due to nerve block but hand functioning. Review of Systems Review of Systems: No issues patient feeling well. Physical Exam Musculoskeletal: Dressing intact drain intact. Still under effects of nerve block but can flex and extend fingers and thumb. Still some numbness in the radial side of the hand. Normal capillary refill. Results & Data Vital Signs (Past 12 Hours) Vital Signs Temp Pulse Resp BP Pulse Ox O2 Del Method 01/18/24 07:52 36.8 C 85 18 137/66 93 Room Air 01/18/24 04:42 37 C 84 84 H 143/75 H 95 Room Air 01/18/24 00:07 37 C 102 H 16 119/70 93 Room Air 01/17/24 21:19 37 C 102 H 16 130/70 93 Room Air 01/17/24 20:15 36.4 C L 108 H 16 135/67 95 Room Air
[2024-01-18] MEDS ORDERED: NON-FORMULARY MEDICATION (Vitamin B12-Folic Acid 500-400 mcg Tablet) PO SCH (09:00)
[2024-01-18] MEDS: dexAMETHasone 10 MG in SYRINGE 0 ML IV SCH (09:01)
[2024-01-18] MEDS: predniSONE 5 MG TAB PO SCH (09:01)
[2024-01-18] MEDS: PANTOprazole 40 MG TAB PO SCH (09:02)
[2024-01-18] MEDS: PSYLLIUM or GUAR GUM FIBER 4GM PACKET PO SCH (09:02)
[2024-01-18] MEDS: LOSARTAN POTASSIUM 50 MG TAB PO SCH (09:02)
[2024-01-18] MEDS: ASPIRIN 325 MG ECTAB PO SCH (09:02)
[2024-01-18] MEDS: ATORVASTATIN 40 MG TAB PO SCH (09:02)
[2024-01-18] MEDS: hydroCHLOROthiazide 25 MG TAB PO SCH (09:02)
[2024-01-18] MEDS: MULTIVITAMIN TAB PO SCH (09:02)
[2024-01-18] MEDS: FLUTICASONE FUROATE 100MCG 14 PUFFS/INHALER INH SCH (09:08)
[2024-01-18 10:17] LABS: Potassium 3.7 mmol/L (3.5-5.1)
[2024-01-18 10:23] LABS: Creatinine Clr Calc Pharmacy 64.9 ml/min; Est GFR (Non-African American) 87.1 ml/min
[2024-01-18 11:39] VITALS: PULSE 90
[2024-01-18] MEDS ORDERED: CeleBREX 200 MG CAP PO SCH (21:00)
== END 2024-01-18 12:15 | disposition home or self-care (01) ==
LOC: ASU 10:21 → 3W 10:21